=== PATIENT | male | born 1930 | race Caucasian/White ===

== ENCOUNTER 2018-03-14 02:51 | Inpatient (IN) ==
[2018-03-14 03:47] LABS: BASOPHILS # (AUTO) 0.01 10*3/UL; BASOPHILS % (AUTO) 0.1 % (0-1); EOSINOPHILS # (AUTO) 0.01 10*3/UL; EOSINOPHILS % (AUTO) 0.1 % (0-8); Hematocrit [HCT] 24.9 % (42.0-52.0); Hemoglobin [HGB] 7.8 g/dL (14.0-18.0); LYMPHOCYTES # (AUTO) 1.32 10*3/uL; MEAN CORPUSCULAR HEMOGLOBIN 29.3 PG (27-31); MEAN CORPUSCULAR HGB CONC 31.3 g/dL (33-37); MEAN CORPUSCULAR VOLUME 93.6 FL (80-90); MEAN PLATELET VOLUME 10.2 FL (7.4-12.2); MONOCYTES # (AUTO) 0.62 10*3/UL (0.3-0.8); MONOCYTES % (AUTO) 5.2 % (5-15); NEUTROPHILS # (AUTO) 9.94 10*3/UL; NEUTROPHILS % (AUTO) 83.2 % (50-80); RED BLOOD COUNT 2.66 10^6/uL (4.70-6.10)
[2018-03-14 03:59] LABS: BLOOD UREA NITROGEN 72 mg/dL (7-22); BUN/CREATININE RATIO 42.35 (6-20); SERUM ALBUMIN 3.6 g/dL (3.5-4.8)
[2018-03-14 04:14] LABS: PLATELET MORPHOLOGY COMMENT NORMAL MORPHOLOGY (NORM); RBC MORPHOLOGY COMMENT SEE COMMENTS (NORM); WBC MORPHOLOGY COMMENT NORMAL MORPHOLOGY (NORM)
[2018-03-14] MEDS ORDERED: LIDOCAINE W/ SODIUM BICARB 0.5 ML SYR SUBD PRN ×2 (04:43→05:21)
[2018-03-14] MEDS ORDERED: ONDANSETRON 4 MG/2 ML VIAL IVP PRN ×2 (04:43→05:21)
[2018-03-14] MEDS ORDERED: Lactated Ringers 1,000 ML PRIMARY IV SCH (04:45)
--- NOTE | 2018-03-14 05:39 | PDOC ---
HPI - History of Present Illness Date of Service: 03/14/18 Time of Service: 06:00 Chief Complaint: Hematemesis of one day duration, melena intermittent duration not clear. History of Present Illness: This is an 87 years old male with medical history significant for history of hypertension, Parkinson disease, history of bladder cancer in the past had BCG treatment for it and admission back in 2015 for CHF looks secondary to diastolic dysfunction, who presented to the hospital with history of melena duration is unclear but also reported hematemesis about 3 times yesterday. Patient had blood test in the ER found to have acute renal failure and the anemia and was admitted. Apparently back in October the patient was referred to Dr. Padron because of anemia and EGD done showed esophagitis with esophageal ulcer. Patient was put on Protonix and per the he developed a rash and apparently that was discontinued and replaced with famotidine. Patient is not taking Motrin or Aleve but he is on aspirin. Patient denied abdominal pain, denied current nausea and denied dizziness or lightheadedness or shortness of breath. Past Medical History Medical History: 1. Bladder cancer status post tumor removal with BCG therapy. 2. History of Parkinson disease. 3. Admission in 2015 for congestive heart failure, looks like secondary to diastolic dysfunction. 4. Hypertension. 5. History of esophagitis and esophageal ulcer had EGD in October of this year Surgical History: 1. Remote appendectomy Pertinent Family History: Both parents of cancer Past Social History: Quit smoking in the early . Been 55 years. No children. Lives with his in [place], [place]. He does not want any CPR should his heart stop. Tobacco Use: Former Smoker In the Past 12 Months, Have Used or Abuse Any of the Following Substance: None Alcohol Use: None Medication / Allergies Home Medications: Home Medications 3 Medication Instructions Recorded Confirmed Type Aspirin 325 mg PO DAILY #30 tab 03/22/16 03/14/18 Rx Carvedilol [Coreg] 3.125 mg PO BID #60 tab 03/22/16 03/14/18 Rx Furosemide [Lasix] 40 mg PO EVERY AM #30 tab 03/22/16 03/14/18 Rx Lisinopril [Prinivil Tab] 5 mg PO DAILY #30 tab 03/22/16 03/14/18 Rx Potassium Chloride [Klor-Con] 20 meq PO DAILY #30 tab 03/22/16 03/14/18 Rx Spironolactone [Aldactone] 25 mg PO BID #30 tab 03/22/16 03/14/18 Rx albuterol sulfate HFA 90 2 inh INH QHS PRN g 11/07/17 03/14/18 History mcg/actuation aerosol inhaler carbidopa 25 mg-levodopa 100 mg 1 tab PO BID tab 11/07/17 03/14/18 History disintegrating tablet Allergies/Adverse Reactions: Allergies 3 Allergy/AdvReac Type Severity Reaction Status Date / Time pantoprazole [From Protonix] Allergy HIVES Verified 03/14/18 02:54 Review of Systems - Review of Systems All Systems: Reviewed & No Additional Complaints Except as Stated Exam - Vitals Vital Signs: Vital Signs Temperature 97.9 F Temperature Source Temporal Artery Scan Pulse Rate [Pulse Oximeter] 100 Respiratory Rate 16 Blood Pressure [Left Radial 131/86 Artery] Pulse Ox 95 Oxygen Delivery Method Room Air Height 6 ft 1 in Weight 190 lb - General General Appearance: No Acute Distress, Cooperative - Head Head Exam: Normal Inspection - Eye Eye Exam: POSITIVE: Normal Appearance - ENT ENT Exam: POSITIVE: Normal Exam - Neck Neck Exam: Normal Inspection - Respiratory Respiratory Exam: POSITIVE: Clear to Auscultation - Bilaterally - Cardiovascular Cardiovascular Exam: POSITIVE: RRR - GI/Abdominal GI/Abdominal Exam: POSITIVE: Normal Bowel Sounds, Non Tender, Non Distended, Soft, No Organomegaly - Rectal Rectal Exam: POSITIVE: Deferred - External Exam: POSITIVE: Deferred - Extremities Extremities Exam: POSITIVE: Normal Inspection Additional Extremities Exam Details: Tremor noted in his hands - Back Back Exam: POSITIVE: Normal Inspection - Neurological Neurological Exam: POSITIVE: Alert, CN II-XII Intact, Speech Intact / Clear, Moves All Extremities Equally Additional Neurological Exam Details: Resting tremor noted - Integumentary Integumentary Exam: POSITIVE: Pallor Results - Labs CBC and BMP: 03/14/18 03:35 03/14/18 03:35 Assessment and Plan - Patient Problems (1) GI bleed Current Visit: Yes Status: Acute Comment: We'll DC the aspirin. He is allergic to Protonix. Will put him on Pepcid. We'll give him 2 units of blood. Repeat labs later on. We'll put him on IV fluid also. I will discuss it with Dr. Grosdidier today. Code(s): Jenny92.2 - Gastrointestinal hemorrhage, unspecified (2) Acute renal failure Current Visit: Yes Status: Acute Comment: Probably secondary to the bleeding in addition he is on Aldactone will hold the spironolactone. Code(s): N17.9 - Acute kidney failure, unspecified (3) Parkinson disease Current Visit: No Status: Acute Comment: He is on Sinemet continue Code(s): G20 - Parkinson's disease
[2018-03-14] MEDS: Lactated Ringers 1,000 ML PRIMARY IV SCH ×2 (05:49→19:02)
[2018-03-14] MEDS ORDERED: ALBUTEROL SULFATE 8.5 GM HFA INHALER INH PRN (05:55)
--- NOTE | 2018-03-14 07:01 | PDOC ---
GI Bleed/Rectal Complaint HPI - General Chief Complaint: GI Bleed / Rectal Pain Stated Complaint: BLOODY EMESIS X 4 YESTERDAY Date Seen by Provider: 03/14/18 Time Seen by Provider: 03:05 Source: POSITIVE: Patient, Spouse, RN/MD Exam Limitations: POSITIVE: No limitations Nurse's Notes Reviewed & Considered: Yes - History of Present Illness Initial Comments: The patient is an 87-year-old male. Patient complains of a 1 day history of "black stools "and he is also had 3 episodes of hematemesis. Patient was initially seen at the [facility] emergency room and then referred here. Patient had an esophagogastroduodenoscopy on 11/07/2017 in which she was diagnosed as having "ulcers "according to the patient's . At the [place] emergency room his hemoglobin was 24 and his hematocrit was 22.8. Patient denies any abdominal pain. No head or chest pain. No syncope. Patient has a history of Parkinson's disease with a prominent tremor to his right hand. Body Location Affected: REPORTS: Abdomen (Melena and hematemesis) Timing: REPORTS: Intermittent Duration: <24 hours Severity: Moderate Quality: REPORTS: Other (Patient denies any pain anywhere) Context: REPORTS: None Associated Symptoms: REPORTS: Black Stools, Vomiting (Patient reports hematemesis; this was not observed in the emergency room.) Last BM (Date): 03/13/18 Similar Symptoms Previously: Yes (past history of gastrointestinal bleeding) Recent Care Received: REPORTS: Recently Seen, Treated by MD Any Prior Injuries Related to Current Complaint?: No - Patient Home Medications Home Medications: Home Medications Aspirin 325 mg PO DAILY #30 tab 03/22/16 Carvedilol [Coreg] 3.125 mg PO BID #60 tab 03/22/16 Furosemide [Lasix] 40 mg PO EVERY AM #30 tab 03/22/16 Lisinopril [Prinivil Tab] 5 mg PO DAILY #30 tab 03/22/16 Potassium Chloride [Klor-Con] 20 meq PO DAILY #30 tab 03/22/16 Spironolactone [Aldactone] 25 mg PO BID #30 tab 03/22/16 albuterol sulfate HFA 90 mcg/actuation aerosol inhaler 2 inh INH QHS PRN g carbidopa 25 mg-levodopa 100 mg disintegrating tablet 1 tab PO BID tab - Patient Allergies Allergies/Adverse Reactions: Allergies 3 Allergy/AdvReac Type Severity Reaction Status Date / Time pantoprazole [From Protonix] Allergy HIVES Verified 03/14/18 02:54 Past Medical History - heen HEENT History: Cataracts, Hard of Hearing, Dentures/Partials Cardiovascular History: Hypertension, CHF Respiratory History: Pneumonia Gastrointestinal History: GERD, GI Bleed Genitourinary History: Renal Disease, Incontinence Endocrine History: Denies History Musculoskeletal History: Arthritis, Back Pain, Back Injury Prosthesis or Implant: No Neurological History: Parkinson's Blood Disorders: Anemia Psychiatric History: Denies History History of Sexually Transmitted Diseases: No Cancer History: Other (please comment) In Past Year Been Physically Harmed or Verbally Threatened: No History of MDRO: Unknown History of Other Communicable Diseases: No Tobacco Use: Former Smoker Alcohol Use: Rarely In the Past 12 Months, Have Used or Abuse Any Substance: None Previous Surgical History: Yes Type / Date of Surgery: appendectomy/bladder tumor removed/cataracts Anesthesia Reactions: No Malignant Hyperthermia: No Significant Family History: Heart disease, Cancer, Diabetes Past Medical History Reviewed: Reviewed - No Changes ROS - Limitations ROS Limitations: No Limitations Constitution: REPORTS: Denies Symptoms Cardiovascular: REPORTS: Denies Cardiac Symptoms Respiratory: REPORTS: Denies Resp Symptoms Neurological: REPORTS: Denies Neuro Symptoms Gastrointestinal: REPORTS: Vomitting, Black Stools, Other (Hematemesis by history) Endocrine: REPORTS: Denies Symptoms Musculoskeletal: REPORTS: Denies MS Symptoms Genitourinary: REPORTS: Denies Symptoms Eyes: REPORTS: Denies Symptoms ENT: REPORTS: Denies Symptoms Skin: REPORTS: Denies Skin Symptoms Lympathic: REPORTS: Denies Lympathic Symptoms Immunologic: POSITIVE: Denies Symptoms Psychiatric: POSITIVE: Denies Psych Symptoms GI Bleed / Rectal Complaint PE - General Appearance General Appearance: POSITIVE: Alert, Cooperative, No Acute Distress, No Evidence of Trauma, Other (Very pale) - HEENT HEENT: POSITIVE: Head Inspection Nml, Eyes Inspection Nml, Ears Inspection Nml, Nose Inspection Nml, Oral/Dental Inspect. Nml, Pharynx Inspect. Nml, PERRL, EOMI - Neck Neck: POSITIVE: Normal Inspection, No Apparent Injury - Respiratory Respiratory: POSITIVE: No Respiratory Distress, Breath Sounds Normal, Chest Non- Tender - Cardiovascular Cardiovascular: POSITIVE: Regular Rate and Rhythm, Heart Sounds Normal, Equal Pulses, Strong Pulses Peripheral Pulses: Radial (R): 2+, Radial (L): 2+ - Abdomen Abdomen: Soft: (All Quadrants), Normal Bowel Sounds: (All Quadrants), Denies Tenderness: (All Quadrants), No Splenomegaly: (All Quadrants), No Hepatomegaly: (All Quadrants), No Guarding: (All Quadrants), No Rebound: (All Quadrants), No Palpable Pulse: (All Quadrants), No Palpabale Mass: (All Quadrants), No Distention: (All Quadrants), No Rigidity: (All Quadrants) - Genital / Rectal Rectal: POSITIVE: Non-Tender, Black Stool (Hemoccult positive), Heme Positive Stool - Skin Skin: POSITIVE: No Rash, Warm, Cyanosis. NEGATIVE: Color Normal (Pale) - Extremities Extremity: Non-Tender: (All Extremities), Normal ROM: (All Extremities), Normal Inspection: (All Extremities) - Neurological / Psychological Neurological: POSITIVE: Affect Apporpriate, Oriented X3, tail end rider Normal As Tested, Motor Normal, Sensation Normal, Other (Resting tremor of hands, especially on the right; history of Parkinson's disease) GI Bleed / Rectal Progress - Results Reviewed by me Lab Results Reviewed by Me: Yes Lab Results:: Laboratory Results 3 03/14/18 03/14/18 03/14/18 03:35 03:35 03:35 WBC 11.93 H RBC 2.66 L Hgb 7.8 L Hct 24.9 L MCV 93.6 H MCH 29.3 MCHC 31.3 L RDW Std Deviation 50.2 H RDW Coeff of Gage 15.4 H Plt Count 221 MPV 10.2 Immature Gran % (Auto) 0.3 Neut % (Auto) 83.2 H Lymph % (Auto) 11.1 [place] % (Auto) 5.2 Eos % (Auto) 0.1 Baso % (Auto) 0.1 Immature Gran # (Auto) 0.03 Neut # (Auto) 9.94 Lymph # (Auto) 1.32 [place] # (Auto) 0.62 Eos # (Auto) 0.01 Baso # (Auto) 0.01 WBC Morphology Comment Normal morphology Plt Morphology Comment Normal morphology RBC Morph Comment See comments PT 10.7 INR 1.01 APTT 20.2 L Sodium 138 Potassium 4.3 Chloride 109 Carbon Dioxide 15 L Anion Gap 14 BUN 72 H Creatinine 1.7 H Estimated GFR Screen Operator BUN/Creatinine Ratio 42.35 H Glucose 115 H Calculated Osmolality 307.0 H Calcium 9.3 Total Bilirubin 0.2 L AST 18 L ALT 35 Alkaline Phosphatase 55 Total Protein 6.2 Albumin 3.6 Globulin 2.6 Albumin/Globulin Ratio 1.30 Blood Type Antibody Screen Crossmatch 3 03/14/18 03:38 WBC RBC Hgb Hct MCV MCH MCHC RDW Std Deviation RDW Coeff of Gage Plt Count MPV Immature Gran % (Auto) Neut % (Auto) Lymph % (Auto) [place] % (Auto) Eos % (Auto) Baso % (Auto) Immature Gran # (Auto) Neut # (Auto) Lymph # (Auto) [place] # (Auto) Eos # (Auto) Baso # (Auto) WBC Morphology Comment Plt Morphology Comment RBC Morph Comment PT INR APTT Sodium Potassium Chloride Carbon Dioxide Anion Gap BUN Creatinine Estimated GFR BUN/Creatinine Ratio Glucose Calculated Osmolality Calcium Total Bilirubin AST ALT Alkaline Phosphatase Total Protein Albumin Globulin Albumin/Globulin Ratio Blood Type A POSITIVE Antibody Screen Negative Crossmatch See Detail CBC and BMP: 03/14/18 03:35 03/14/18 03:35 - Patient's Progress Pain Medication Addressed: POSITIVE: Not Applicable School/Work Release Addressed: POSITIVE: Not Applicable Re-Examine Time:: 04:30 Re-Examine Comment: Patient rested comfortably while in the emergency room. No diarrhea or vomiting while in the emergency room. 2 units of packed red blood cells ordered typed and crossed. Case discussed with Dr. Xie, hospitalist, who has admitted the patient for further evaluation and treatment. Status: POSITIVE: Unchanged, Re-Examined - Consult Consult (If Yes, Name of Consulting MD & Time Called): Yes (Dr. Xie, hospitalist, [id number]) Consulting MD will see pt:: POSITIVE: [facility] Admit Counseled: POSITIVE: Patient, Family, RE: Lab Results, RE: DX, RE: Need for F/U Patient Care Time - Estimated PCT Patient Care Time (In Minutes): 45 Vital Signs - Recent Vital Signs Vital Signs: Vital Signs (Last 8 hours) Temp Pulse Resp BP Pulse Ox 03/14/18 05:00 98.0 F 89 20 107/76 97 03/14/18 04:49 86 03/14/18 03:09 97.9 F 100 16 131/86 95 - VS Reviewed Vital Signs Reviewed: Yes Discharge Clinical Impression: GI bleed Discharge Disposition: Admit to Inpatient Condition: Fair Date Decision to Admit to Inpatient: 03/14/18 Time Decision to Admit to Inpatient: 04:30
[2018-03-14] MEDS: Sodium Chloride 0.9% 500 ML PRIMARY IV SCH (07:34)
[2018-03-14] MEDS: FAMOTIDINE 20 MG/2 ML VIAL IVP SCH ×2 (08:58→20:39)
[2018-03-14] MEDS: Carbidopa/Levodopa 25/100mg Tab PO SCH ×2 (09:07→20:39)
[2018-03-14 18:06] LABS: Hemoglobin [HGB] 8.1 g/dL (14.0-18.0)
[2018-03-15] MEDS: Lactated Ringers 1,000 ML PRIMARY IV SCH ×4 (01:34→19:12)
[2018-03-15] MEDS: Sodium Chloride 0.9% 500 ML PRIMARY IV SCH (01:35)
[2018-03-15 04:47] LABS: BASOPHILS # (AUTO) 0.01 10*3/UL; BASOPHILS % (AUTO) 0.2 % (0-1); EOSINOPHILS # (AUTO) 0.19 10*3/UL; EOSINOPHILS % (AUTO) 3.6 % (0-8); Hematocrit [HCT] 24.4 % (42.0-52.0); Hemoglobin [HGB] 7.8 g/dL (14.0-18.0); LYMPHOCYTES # (AUTO) 1.07 10*3/uL; MEAN CORPUSCULAR VOLUME 90.7 FL (80-90); MEAN PLATELET VOLUME 9.8 FL (7.4-12.2); MONOCYTES # (AUTO) 0.46 10*3/UL (0.3-0.8); MONOCYTES % (AUTO) 8.8 % (5-15); NEUTROPHILS # (AUTO) 3.48 10*3/UL; NEUTROPHILS % (AUTO) 66.9 % (50-80); RED BLOOD COUNT 2.69 10^6/uL (4.70-6.10)
[2018-03-15 04:54] LABS: BLOOD UREA NITROGEN 47 mg/dL (7-22); BUN/CREATININE RATIO 39.16 (6-20)
[2018-03-15 05:54] LABS: PLATELET MORPHOLOGY COMMENT NORMAL MORPHOLOGY (NORM); RBC MORPHOLOGY COMMENT NORMAL MORPHOLOGY (NORM); WBC MORPHOLOGY COMMENT NORMAL MORPHOLOGY (NORM)
[2018-03-15] MEDS ORDERED: Sodium Chloride 0.9% 500 ML PRIMARY IV ONE (07:49)
--- NOTE | 2018-03-15 07:58 | PDOC(PROG) ---
Date and Time of Service: 03/15/2018 7:55 AM Interval History: Subjective Patient is denying symptoms is no more vomiting. He said he had 3 bowel movements was melenic per The nursing staff. No fresh blood. Objective : Data - Labs CBC and BMP: 03/15/18 04:20 03/15/18 04:20 Objective : Exam - General General Appearance: No Acute Distress, Cooperative - Head Head Exam: Normal Inspection - Eye Eye Exam: Normal Appearance - ENT ENT Exam: Normal Exam - Neck Neck Exam: Normal Inspection - Respiratory Respiratory Exam: Clear to Auscultation - Bilaterally - Cardiovascular Cardiovascular Exam: RRR - GI/Abdominal GI/Abdominal Exam: Normal Bowel Sounds, Non Tender, Non Distended, Soft, No Organomegaly - Rectal Rectal Exam: Deferred - External Exam: Deferred Exam: Deferred - Extremities Extremities Exam: Normal Inspection - Back Back Exam: Normal Inspection - Neurological Neurological Exam: Alert, Oriented x 3, CN II-XII Intact, No Facial Droop, Speech Intact / Clear, Moves All Extremities Equally - Psychiatric Psychiatric Exam: Flat Affect Assessment and Plan - Patient Problems (1) GI bleed Current Visit: Yes Status: Acute Comment: His hemoglobin is still at the same number that he started with. I think we'll cut back on the fluid will give her a unit of blood repeat his level again. Will discuss it with Dr. Padron. Per my discussion with him yesterday he want to see whether his hemoglobin would stabilize and he would not need EGD now. Code(s): K92.2 - Gastrointestinal hemorrhage, unspecified (2) Acute renal failure Current Visit: Yes Status: Acute Comment: This is improving. I think we'll cut back on his fluid because of his history of congestive heart failure before Code(s): N17.9 - Acute kidney failure, unspecified (3) Parkinson disease Current Visit: No Status: Acute Comment: Continue Sinemet Code(s): G20 - Parkinson's disease
--- NOTE | 2018-03-15 09:22 | CONSULT ---
Consult Note - Consult Consult Date: 03/15/18 Reason for Consult: PreOp Consulation : General Surgery Requesting Physician: Dr. Xie Primary Care Provider: ROMEO CHISHOLM - History of Present Illness History of Present Illness: There is a 7-year-old gentleman has a known esophageal ulcers and gastritis. He comes in with hematemesis and black tarry stools. This started on 2017. Patient came initial hemoglobin of 7.8. He is admitted to the hospital started on Pepcid (had an allergic reaction to her Protonix) and was transfused 2 units of blood initially his hemoglobin came 8.1 and subsequent this morning' s hemoglobin 7.8. He still having black tarry stools. Review of Systems - Review of Systems All Systems: Reviewed & No Additional Complaints Except as Stated Past Medical History Medical History: 1. Bladder cancer status post tumor removal with BCG therapy. 2. History of Parkinson disease. 3. Admission in 2015 for congestive heart failure, looks like secondary to diastolic dysfunction. 4. Hypertension. 5. History of esophagitis and esophageal ulcer had EGD in October of this year Surgical History: 1. Remote appendectomy Pertinent Family History: Both parents of cancer Past Social History: Quit smoking in the early . Been 55 years. No children. Lives with his in [place], [place]. He does not want any CPR should his heart stop. Tobacco Use: Former Smoker In the Past 12 Months, Have Used or Abuse Any of the Following Substance: None Alcohol Use: None Medication / Allergies Home Medications: Home Medications 3 Medication Instructions Recorded Confirmed Type Aspirin 325 mg PO DAILY #30 tab 03/22/16 03/14/18 Rx Carvedilol [Coreg] 3.125 mg PO BID #60 tab 03/22/16 03/14/18 Rx Furosemide [Lasix] 40 mg PO EVERY AM #30 tab 03/22/16 03/14/18 Rx Lisinopril [Prinivil Tab] 5 mg PO DAILY #30 tab 03/22/16 03/14/18 Rx Potassium Chloride [Klor-Con] 20 meq PO DAILY #30 tab 03/22/16 03/14/18 Rx Spironolactone [Aldactone] 25 mg PO BID #30 tab 03/22/16 03/14/18 Rx albuterol sulfate HFA 90 2 inh INH QHS PRN g 11/07/17 03/14/18 History mcg/actuation aerosol inhaler carbidopa 25 mg-levodopa 100 mg 1 tab PO BID tab 11/07/17 03/14/18 History disintegrating tablet Allergies/Adverse Reactions: Allergies 3 Allergy/AdvReac Type Severity Reaction Status Date / Time pantoprazole [From Protonix] Allergy HIVES Verified 03/14/18 02:54 Results - Labs CBC and BMP: 03/15/18 04:20 03/15/18 04:20 Exam - Vitals Vital Signs: Vital Signs Temperature 97.8 F Temperature Source Oral Pulse Rate [Pulse Oximeter] 70 Pulse Rate 68 Respiratory Rate 18 Blood Pressure [Right Arm] 105/73 Blood Pressure [Left Radial 109/67 Artery] Blood Pressure 112/64 Pulse Ox 93 Oxygen Delivery Method Room Air Height 6 ft 1 in Weight 186 lb - General General Appearance: No Acute Distress - Head Head Exam: Normocephalic - Eye Eye Exam: POSITIVE: PERRL, EOMI - Respiratory Respiratory Exam: POSITIVE: Clear to Auscultation - Bilaterally, Breathing Non Labored - Cardiovascular Cardiovascular Exam: POSITIVE: RRR, No Murmur Assessment and Plan - Patient Problems (1) Upper GI hemorrhage Current Visit: Yes Status: Acute Code(s): K92.2 - Gastrointestinal hemorrhage, unspecified - Assessment / Plan Additional Assessment/Plan Details: Would recommend the patient have an EGD. The risk and potential complications of the procedure were discussed with the patient.. They understood this. Also discussed alternatives diagnostic and treatment options. Will get the EGD set up at the first available date. CPT 73492
[2018-03-15] MEDS ORDERED: PROPOFOL 10 MG/1 ML (200 MG/20 ML) VIAL IV ONE (09:31)
--- NOTE | 2018-03-15 10:26 | GEN.OPNOTE ---
EGD Operative Note Surgery Date: 03/15/18 Preoperative Diagnosis: Upper GI bleed Postoperative Diagnosis: Upper GI hemorrhage secondary to a small bleeding vessel in the fundus possible mass effect eroded into the stomach. Esophagitis Procedure: Esophagogastroduodenoscopy with cauterization of bleeding point Surgeon: Bunny Padron MD Anesthesia Provider: Ida Coe CRNA Anesthesia Type: MAC Indications: Upper GI hemorrhage Findings: Esophagus: Olympus video EGD scope inserted and posterior pharynx And Esophagus under Direct Visualization. Patient Esophagus Appeared Normal except Just above the GE Junction Where Had a Red Area Consistent with Mandujano's Esophagitis GE Junction : GE junction proximal be 40 cm Fundus : Scope retroflexed on itself revealing normal fundus Body : In the upper portion the body there is a small punctate hemorrhagic area that appeared to be a small vessel bleeding. Initially tried to cauterize this with BiCAP which could not control the bleeding then I used monopolar cautery which controlled the bleeding. There was what appeared to be a masslike effect pushing up on the stomach but the mucosa itself was normal Prepyloric : Prepyloric area normal Small Intestine : First second third portion of duodenum normal A lubricated flexible upper endoscope was inserted and passed through the esophagus and stomach into the duodenum. Endoscopy Procedures - Endoscopy Procedures Primary Endoscopy Procedure: Other CPT Code(s) (71733 EGD with controlled bleeding any method)
--- NOTE | 2018-03-15 10:48 | CRNA.PROGR ---
Anesthesia Time - - Start date: 03/15/18 End date: 03/15/18 - Procedure/Recovery Time Anesthesia : Time In: 09:49 Anesthesia : Time Out: 10:43 Anesthesia : Total Time: 54 - Total Anesthesia Time Total Anesthesia Time (minutes): 54 - Other Weight: 84.368 kg Height: 6 ft 1 in Body Mass Index (BMI): 24.5 Physical Status: P3 (gi bleed, parkinsons,copd,age) Anesthesia Type: MAC (plus 2 addditional iv starts)
--- NOTE | 2018-03-15 10:51 | CRNA.PROGR ---
Post Anesthesia Phase II - Post Anesthesia Phase II Patient Stable and Discharged To: ICU Care Assumed By Surgeon: Jeff Padron MD Temperature: 97.8 F Pulse Rate: 72 Respiratory Rate: 18 Blood Pressure: 103/71 Pulse Ox: 100 Total Jez Score at Discharge: 9 Post Anesthesia Discharge Criteria Met: Yes
[2018-03-15] MEDS ORDERED: Sodium Chloride 0.9% 500 ML ONE (11:07)
[2018-03-15] MEDS: FAMOTIDINE 20 MG/2 ML VIAL IVP SCH ×2 (11:17→20:44)
[2018-03-15] MEDS: Carbidopa/Levodopa 25/100mg Tab PO SCH ×2 (11:18→20:44)
[2018-03-15] MEDS ORDERED: Sodium Chloride 0.9% 500 ML PRIMARY IV SCH (11:30)
[2018-03-15] MEDS: Potassium Chloride Tab 10 MEQ TAB PO SCH (16:26)
[2018-03-15 18:33] LABS: Hematocrit [HCT] 30.6 % (42.0-52.0); Hemoglobin [HGB] 9.8 g/dL (14.0-18.0)
[2018-03-16 05:30] LABS: BASOPHILS # (AUTO) 0.01 10*3/UL; BASOPHILS % (AUTO) 0.2 % (0-1); EOSINOPHILS # (AUTO) 0.18 10*3/UL; EOSINOPHILS % (AUTO) 3.3 % (0-8); Hematocrit [HCT] 26.7 % (42.0-52.0); Hemoglobin [HGB] 8.3 g/dL (14.0-18.0); MEAN CORPUSCULAR HEMOGLOBIN 28.8 PG (27-31); MEAN CORPUSCULAR HGB CONC 31.1 g/dL (33-37); MEAN CORPUSCULAR VOLUME 92.7 FL (80-90); MEAN PLATELET VOLUME 9.9 FL (7.4-12.2); MONOCYTES # (AUTO) 0.44 10*3/UL (0.3-0.8); MONOCYTES % (AUTO) 8.1 % (5-15); NEUTROPHILS # (AUTO) 3.73 10*3/UL; NEUTROPHILS % (AUTO) 68.3 % (50-80); RED BLOOD COUNT 2.88 10^6/uL (4.70-6.10)
[2018-03-16 05:39] LABS: PLATELET MORPHOLOGY COMMENT NORMAL MORPHOLOGY (NORM); RBC MORPHOLOGY COMMENT NORMAL MORPHOLOGY (NORM); WBC MORPHOLOGY COMMENT NORMAL MORPHOLOGY (NORM)
[2018-03-16 05:44] LABS: BLOOD UREA NITROGEN 31 mg/dL (7-22); BUN/CREATININE RATIO 28.18 (6-20)
[2018-03-16] MEDS: Carbidopa/Levodopa 25/100mg Tab PO SCH ×2 (08:54→20:24)
[2018-03-16] MEDS: Potassium Chloride Tab 10 MEQ TAB PO SCH (08:54)
[2018-03-16] MEDS: FAMOTIDINE 20 MG/2 ML VIAL IVP SCH ×2 (08:55→20:23)
--- NOTE | 2018-03-16 10:15 | PDOC(PROG) ---
Subjective Post Op Day: 1 Krause Catheter: No Flatus: Yes Date and Time of Service: 03/16/2018 at 10:15 Interval History: Patient states he's feeling fine. There is reports of no further nausea vomiting. He says dark stool but the number of stools is greatly diminished Objective : Data - Labs CBC and BMP: 03/16/18 04:15 03/16/18 04:15 - Vital Signs Vital Signs and I&O: Vital Signs - Last Taken Temperature 98.7 F 03/16/18 09:00 Pulse Rate 81 03/16/18 09:00 Respiratory Rate 18 03/16/18 09:00 Blood Pressure 109/64 03/16/18 09:00 Pulse Ox 95 03/16/18 09:00 Intake and Output (24hr x 4 totals) 03/14/18 03/15/18 03/16/18 03/17/18 05:59 05:59 05:59 05:59 Intake Total 2911 / 2911 2216 / 2216 450 / 450 Output Total 1785 / 1785 400 / 400 150 / 150 Balance 1126 / 1126 1816 / 1816 300 / 300 Objective : Exam - GI/Abdominal GI/Abdominal Exam: Non Tender, Non Distended, Soft Assessment and Plan - Patient Problems (1) Upper GI hemorrhage Current Visit: Yes Status: Acute Code(s): K92.2 - Gastrointestinal hemorrhage, unspecified - Assessment / Plan Additional Assessment/Plan Details: His hemoglobin drifted down a little bit that again there is no other evidence is still bleeding. Will need to watch this will get a CT scan of the abdomen and pelvis today look for a mass that could be eroding into the stomach. Also could start Carafate after the CT scan.
[2018-03-16] MEDS ORDERED: ONDANSETRON 4 MG/2 ML VIAL IVP PRN (12:10)
[2018-03-16] MEDS ORDERED: ALBUTEROL SULFATE 8.5 GM HFA INHALER INH PRN (12:10)
[2018-03-16] MEDS ORDERED: LIDOCAINE W/ SODIUM BICARB 0.5 ML SYR SUBD PRN (12:10)
--- NOTE | 2018-03-16 12:21 | DI ---
CT ABDOMEN SCAN WITH IV CONTRAST, 03/16/2018 10:30 AM : Clinical History: Ulcer. Previous Exam: None at this facility. Comparison is made with a CT chest scan without IV contrast fro 03/17/2016. Scans are performed from the lower lung bases through the liver and kidneys with IV contrast. 65 mL o f Isovue 300 was injected IV. Volumen oral enterography contrast was administered. Small bilateral pleural effusions are present. Calcifications are present in the LAD, left circumflex artery, and right coronary artery. Calcifications are also noted in the area of the aortic valve. In the anterior chest wall between the medial and lateral segments of the right middle lobe is an irreg ularly shaped noncalcified nodular density measuring 20 x 10 x 20 mm. This was not present on the CT scan of the chest from 2015. Multiple low-density lesions approaching water density are present in th e right and left lobes the liver ranging in size from 3 mm up to 15 mm and these were present on the last exam and are consistent with cysts. The gallbladder mucosa enhances and the gallbladder wall is of low density consistent with edema. No gallstones are visualized. This may represent acute cholecys titis. The common duct measures 5 mm. The gastric mucosa including the antrum is normal and the secon d and third parts of the duodenum are also normal. The pancreas is atrophic and there are punctate ca lcifications in the head of the pancreas but not in the remainder of the pancreas. The pancreatic ziggy t is not dilated. These calcifications may represent chronic pancreatitis, but they also could be sma ll calcifications in the vessels surrounding the pancreatic head. Both kidneys are normal in size, sh ape, position and contour. There is no hydronephrosis or hydroureter. No renal or ureteral calculi ar e present. There are no abnormal retrocrural or periaortic nodes. No ascites is present. READIN. There is enhancement of the gallbladder mucosa and the wall is of low density suggesting edema. T his may represent acute cholecystitis. No obvious gallstone is visualized. The common duct measures 5 mm. 2. There is no obvious enhancing mucosal lesion in the stomach or in the second part of the duodenum to suggest a large ulcer. Calcifications are present in the head of the pancreas and these are eithe r vascular or secondary to chronic pancreatitis. The pancreatic duct is not dilated. 3. 10 x 20 x 20 mm noncalcified nodular lesion in the right middle lobe anteriorly. This was not pre sent on the previous exam of the chest from 2016. 4. Small bilateral pleural effusions. Coronary artery disease in the LAD, left circumflex artery, an d right coronary artery with possible calcific aortic valvular disease. CT PELVIS SCAN WITH IV CONTRAST, 03/16/2018 10:30 AM: Clinical History: See above. Previous Exam: None at this facility. Scans are performed from just superior to the umbilicus to the symphysis pubis with IV contrast. This is the same bolus of contrast used for the CT scans of the abdomen. Scans through the lower abdomen and pelvis show no masses, enhancing lesions, or abnormal fluid colle ctions. There is no adenopathy. The appendix is not identified with certainty but there is no inflamm atory mass either in the cecum or in the right lower quadrant. The small bowel, terminal ileum, and i leocecal valve are normal. The colon is also normal. There are no hernias. 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 The aneurysm measu res 43 x 45 mm in AP and transverse diameter. READIN. 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 2. The study is otherwise normal.
--- NOTE | 2018-03-16 12:47 | PDOC(PROG) ---
Date and Time of Service: 03/16/2018, 1240 Interval History: Patient seen and evaluated earlier today. Discussed with Dr. Padron. No complaints of abdominal pain. No nausea and no vomiting. Has not had a bowel movement. Tolerating regular diet thus far . Does not feel weak. Objective : Data - Labs CBC and BMP: 03/16/18 04:15 03/16/18 04:15 Objective : Exam - General General Appearance: No Acute Distress, Cooperative Additional General Exam Details: Vital Signs - Last Taken Temperature 98.7 F 03/16/18 09:00 Pulse Rate 69 03/16/18 11:00 Respiratory Rate 16 03/16/18 10:00 Blood Pressure 118/80 03/16/18 11:00 Pulse Ox 97 03/16/18 11:00 - Eye Eye Exam: No Scleral Icterus - ENT ENT Exam: Mucous Membranes Moist - Respiratory Respiratory Exam: Clear to Auscultation - Bilaterally, Breathing Non Labored - Cardiovascular Cardiovascular Exam: RRR, No Murmur, No Clicks, No Gallops, No Rubs, No JVD - GI/Abdominal GI/Abdominal Exam: Normal Bowel Sounds, Non Tender, Non Distended, Soft - Extremities Extremities Exam: No Clubbing Present, No Edema Present, No Cyanosis Present - Neurological Neurological Exam: Alert, Oriented x 3, No Facial Droop, Speech Intact / Clear, Moves All Extremities Equally - Integumentary Additional Integumentary Exam Details: Appears pale on exam. Assessment and Plan - Patient Problems (1) GI bleed Current Visit: Yes Status: Acute Code(s): K92.2 - Gastrointestinal hemorrhage, unspecified Qualifiers: GI bleed type/associated pathology: gastric ulcer Qualified Code(s): K25.4 - Chronic or unspecified gastric ulcer with hemorrhage (2) Acute blood loss anemia Current Visit: Yes Status: Acute Code(s): D62 - Acute posthemorrhagic anemia (3) Parkinson disease Current Visit: Yes Status: Chronic Code(s): G20 - Parkinson's disease (4) Acute renal failure Current Visit: Yes Status: Resolved Code(s): N17.9 - Acute kidney failure, unspecified Qualifiers: Acute renal failure type: unspecified Qualified Code(s): N17.9 - Acute kidney failure, unspecified - Assessment / Plan Additional Assessment/Plan Details: I think we should continue to hold off the aspirin. The patient and his state that he is on it because of a diagnosis of congestive heart failure couple of years ago. No proven coronary artery disease. We'll discuss with his primary doctor tomorrow if possible. Transfer out of ICU. We did do CT scan today, I reviewed this with surgery. No evidence of abdominal mass. Radiology and noted. Patient does have peripheral arterial disease. That may be an argument to continue aspirin, although if we do, he should remain on some sort of acid jacob throughout his life. He cannot tolerate proton pump inhibitors due to rash on Protonix, but perhaps a combination of Carafate and H2 blockers will be the best we can do. Hold off on blood transfusion with hemoglobin noted today at over 8. Check again in a.m. Discussed with patient and his and they agree with plan.
[2018-03-16] MEDS: Sucralfate Tab 1 GM TAB PO SCH ×2 (15:55→20:24)
[2018-03-16] MEDS ORDERED: Potassium Chloride Tab 10 MEQ TAB PO SCH (17:00)
[2018-03-16] MEDS: CARVEDILOL 3.125 MG TABLET PO SCH (20:23)
[2018-03-17 05:05] LABS: Hematocrit [HCT] 26.5 % (42.0-52.0); Hemoglobin [HGB] 8.3 g/dL (14.0-18.0); MEAN CORPUSCULAR HGB CONC 31.3 g/dL (33-37); MEAN CORPUSCULAR VOLUME 92.7 FL (80-90); RED BLOOD COUNT 2.86 10^6/uL (4.70-6.10)
[2018-03-17] MEDS ORDERED: FUROSEMIDE 40 MG TABLET PO SCH (07:00)
[2018-03-17] MEDS: Sucralfate Tab 1 GM TAB PO SCH ×2 (07:06→11:29)
[2018-03-17] MEDS ORDERED: POTASSIUM CHLORIDE 20 MEQ TAB PO SCH (09:00)
[2018-03-17] MEDS ORDERED: LISINOPRIL 5 MG TABLET PO SCH (09:00)
[2018-03-17] MEDS: CARVEDILOL 3.125 MG TABLET PO SCH (09:02)
[2018-03-17] MEDS: FAMOTIDINE 20 MG/2 ML VIAL IVP SCH (09:02)
[2018-03-17] MEDS: Carbidopa/Levodopa 25/100mg Tab PO SCH (09:03)
[2018-03-17 11:10] VITALS: BP 101/64; RESP 17; TEMP 98.1; O2SAT 94
--- NOTE | 2018-03-17 13:50 | DCSUMMARY ---
Hospitalization Summary Admit Date: 03/14/2018 Discharge Date: 03/17/18 Primary Diagnosis:: GI bleed related to gastric blood vessel Hospital Course: This very pleasant 87-year-old male that came in with vomiting of bright red blood. He had dark stools for some time. He was admitted, EGD was done and he was found to have a bleeding vessel in the gastric area that was cauterized by Dr. Padron. See his procedure note for further details. The patient had an allergy to proton pump inhibitors, so he was maintained on Pepcid and Carafate during the hospital stay and his diet was advanced. He received a total of 3 units of red blood cells during her hospital stay. His discharge hemoglobin is 8.3 which is been consistently in that range for the last 48 hours. There was some concern that there could be a mass based on the EGD, so we did do a CT scan of the abdomen and pelvis. There was no abdominal mass, but the gallbladder wall was thickened. The patient had no symptoms to suggest acute cholecystitis. 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 I spoke with vascular surgery in [place] and they suggested that appointment should be arranged for consideration of endovascular repair. I spoke with the patient's primary physician Dr. Dubose, and she is aware of the situation as well. Given a proton pump inhibitor allergy, we will try to prevent any further erosion in the stomach with Pepcid and with Carafate. I recommended that the patient resume his aspirin in about 1 week due to recognized artery aneurysm and peripheral arterial disease. Today, the patient denies any abdominal pain, no nausea or vomiting, no belly pain, no chest pain and no shortness breath. He would like to go home. Assessment and Plan: 1. As per discharge assessments noted 2. Disposition: Patient is discharged home. 3. Condition on discharge, stable and improved. 4. Diet: regular diet 5. Activities: resume normal activities 6. Follow-Up: 1. Dr. Dubose [address] Khan, 1-2 weeks 7. Medications at the Time of Discharge: Home Medications 3 Medication Instructions Recorded Confirmed Type Carvedilol [Coreg] 3.125 mg PO BID #60 tab 03/22/16 03/14/18 Rx Furosemide [Lasix] 40 mg PO EVERY AM #30 tab 03/22/16 03/14/18 Rx Lisinopril [Prinivil Tab] 5 mg PO DAILY #30 tab 03/22/16 03/14/18 Rx Potassium Chloride [Klor-Con] 20 meq PO DAILY #30 tab 03/22/16 03/14/18 Rx Spironolactone [Aldactone] 25 mg PO BID #30 tab 03/22/16 03/14/18 Rx albuterol sulfate HFA 90 2 inh INH QHS PRN g 11/07/17 03/14/18 History mcg/actuation aerosol inhaler carbidopa 25 mg-levodopa 100 mg 1 tab PO BID tab 11/07/17 03/14/18 History disintegrating tablet Aspirin EC 81 mg PO DAILY #30 tablet. 03/17/18 Rx Famotidine [Pepcid] 20 mg PO BID #60 tab 03/17/18 Rx Sucralfate [Carafate] 1 gm PO AC HS #120 tab 03/17/18 Rx 8. Time, care, counseling and coordination of care for this discharge is greater than 30 minutes. Exam - Vitals Vital Signs: Vital Signs Temperature 98.1 F Temperature Source Temporal Artery Scan Pulse Rate [Pulse Oximeter] 63 Pulse Rate 67 Respiratory Rate 17 Blood Pressure [Left Arm] 101/64 Blood Pressure [Right Arm] 123/85 Blood Pressure [Left Radial 109/67 Artery] Blood Pressure 90/67 Pulse Ox 94 Oxygen Flow Rate 1 Oxygen Delivery Method Room Air Height 6 ft 1 in Weight 188 lb 9.6 oz - General General Appearance: No Acute Distress, Cooperative - Eye Eye Exam: POSITIVE: No Scleral Icterus - ENT ENT Exam: POSITIVE: Mucous Membranes Moist - Respiratory Respiratory Exam: POSITIVE: Clear to Auscultation - Bilaterally, Breathing Non Labored - Cardiovascular Cardiovascular Exam: POSITIVE: RRR, No Murmur, No Clicks, No Gallops, No Rubs, No JVD - GI/Abdominal GI/Abdominal Exam: POSITIVE: Normal Bowel Sounds, Non Tender, Non Distended, Soft - Extremities Extremities Exam: POSITIVE: No Clubbing Present, No Edema Present, No Cyanosis Present - Neurological Neurological Exam: POSITIVE: Alert, Oriented x 3, No Facial Droop, Speech Intact / Clear, Moves All Extremities Equally Additional Neurological Exam Details: Somewhat flat affect on examination consistent with Parkinson's disease. - Psychiatric Psychiatric Exam: POSITIVE: Flat Affect (Again consistent with Parkinson's) Data Peritnent Studies: 03/16/18 03/17/18 04:15 04:18 WBC 6.33 Hgb 8.3 L Hct 26.5 L Plt Count 180 Sodium 139 Potassium 4.0 Chloride 112 Carbon Dioxide 21 L Anion Gap 6 BUN 31 H Creatinine 1.1 BUN/Creatinine Ratio 28.18 H Glucose 94 Calculated Osmolality 294.0 H Calcium 8.3 L 03/14/18 03:35 PT 10.7 INR 1.01 APTT 20.2 L Patient Problems - Patient Problem List (1) GI bleed Current Visit: Yes Status: Acute Code(s): K92.2 - Gastrointestinal hemorrhage, unspecified Qualifiers: GI bleed type/associated pathology: gastric ulcer Qualified Code(s): K25.4 - Chronic or unspecified gastric ulcer with hemorrhage Category: Medical (2) Acute blood loss anemia Current Visit: Yes Status: Acute Code(s): D62 - Acute posthemorrhagic anemia Category: Medical (3) Parkinson disease Current Visit: Yes Status: Chronic Code(s): G20 - Parkinson's disease Category: Medical (4) Acute renal failure Current Visit: Yes Status: Resolved Code(s): N17.9 - Acute kidney failure, unspecified Qualifiers: Acute renal failure type: unspecified Qualified Code(s): N17.9 - Acute kidney failure, unspecified Category: Medical
== END 2018-03-17 14:22 | disposition home or self-care (01) | DRG 378 ==
LOC: ER 02:51 → ICU 04:44 → OPS 03-15 09:45 → ICU 03-15 10:47 → MED/SURG 03-16 13:24
PROVIDERS: ADMIT Internal Medicine; ATTEND Internal Medicine

== ENCOUNTER 2018-05-29 03:35 | Inpatient (IN) ==
[2018-05-29] MEDS ORDERED: ONDANSETRON 4 MG/2 ML VIAL IVP PRN (05:00)
[2018-05-29] MEDS ORDERED: HYDROmorphone 2 MG/1 ML IVP PRN (05:00)
[2018-05-29] MEDS ORDERED: LIDOCAINE HCL 2 % 10 ML JELLY URO-JECT TOPICAL PRN (05:09)
[2018-05-29] MEDS ORDERED: Carbidopa/Levodopa 25/100mg Tab PO SCH (09:00)
[2018-05-29] MEDS: CARVEDILOL 3.125 MG TABLET PO SCH ×2 (10:08→21:11)
[2018-05-29] MEDS: HYDROcodone-APAP 5 MG -325 MG TABLET PO PRN ×4 (10:23→23:58)
[2018-05-29] MEDS ORDERED: ENOXAPARIN SODIUM 40 MG/0.4 ML SYRINGE SUBCUT ONE (12:36)
[2018-05-29] MEDS ORDERED: Lactated Ringers 0 ML PRIMARY IV ONE (12:42)
--- NOTE | 2018-05-29 12:42 | PDOC ---
HPI - History of Present Illness Date of Service: 05/29/18 Time of Service: 12:37 Chief Complaint: Fall and left hip pain History of Present Illness: This is a very pleasant 87-year-old male who is known to the hospital service with a recent history of a GI bleed, he also has Parkinson's disease and early dementia with that. He comes in with complaints of having a fall at around 1 AM in the bathroom. The history was obtained primarily from the patient's due to the patient's underlying dementia and Parkinson's disease. He apparently got up at around 1 AM to use the restroom. He uses a walker at home but the bathroom is too small for a walker and he supposed to use some canes but forgot to do that. He had a fall and he complained that he hurt too much to be able to get up. The patient's called an ambulance and they live in [place], and they were taken to [place], [place], and he was found to have a left hip fracture. He was transferred here for definitive orthopedic care. He does not have any complaints of chest pain, shortness of breath and has not had any anginal chest pain problems. Not have any kidney problems. He's not had a history of a stroke. He does have known diastolic dysfunction, but has not had any issues with symptoms from that lately. His pain is been controlled thus far with by mouth medications. He is in [facility]'s traction currently. The patient 's tells me that the patient has been freezing frequently with ambulation. He has been on Sinemet twice daily for quite some time. However he continues to have freezing symptoms. He does have rigidity, and flat facies from his Parkinson's. He has not been constipated. I spoke with Dr. Dowd, our orthopedic surgeon on-call, and he is to take the patient tomorrow for hip repair at 1 PM Past Medical History Medical History: 1. Bladder cancer status post tumor removal with BCG therapy. 2. History of Parkinson disease. 3. Admission in 2016 for congestive heart failure, looks like secondary to diastolic dysfunction. 4. Hypertension. 5. History of esophagitis and esophageal ulcer status post EGD, on H2 jacob Surgical History: 1. Remote appendectomy Pertinent Family History: Both parents of cancer Past Social History: Quit smoking in the early . Been 55 years. No children. Lives with his in [place], [place]. He does not want any CPR should his heart stop. Tobacco Use: Never Smoker In the Past 12 Months, Have Used or Abuse Any of the Following Substance: None Alcohol Use: None Medication / Allergies Home Medications: Home Medications 3 Medication Instructions Recorded Confirmed Type Carvedilol [Coreg] 3.125 mg PO BID #60 tab 03/22/16 03/14/18 Rx Furosemide [Lasix] 40 mg PO EVERY AM #30 tab 03/22/16 03/14/18 Rx Lisinopril [Prinivil Tab] 5 mg PO DAILY #30 tab 03/22/16 03/14/18 Rx Potassium Chloride [Klor-Con] 20 meq PO DAILY #30 tab 03/22/16 03/14/18 Rx Spironolactone [Aldactone] 25 mg PO BID #30 tab 03/22/16 03/14/18 Rx albuterol sulfate HFA 90 2 inh INH QHS PRN g 11/07/17 03/14/18 History mcg/actuation aerosol inhaler carbidopa 25 mg-levodopa 100 mg 1 tab PO BID tab 11/07/17 03/14/18 History disintegrating tablet Aspirin EC 81 mg PO DAILY #30 tablet. 03/17/18 Rx Famotidine [Pepcid] 20 mg PO BID #60 tab 03/17/18 Rx Sucralfate [Carafate] 1 gm PO AC HS #120 tab 03/17/18 Rx Allergies/Adverse Reactions: Allergies 3 Allergy/AdvReac Type Severity Reaction Status Date / Time pantoprazole [From Protonix] Allergy HIVES Verified 03/17/18 06:40 Review of Systems - Review of Systems All Systems: Reviewed & No Additional Complaints Except as Stated (Review systems was primarily obtained from the patient's , due to the patient's dementia and Parkinson's disease. The 12 point review systems is negative other than that discussed in history of present illness above.) Exam - Vitals Vital Signs: Vital Signs Temperature 98 F Temperature Source Temporal Artery Scan Pulse Rate [Radial] 81 Pulse Rate 77 Respiratory Rate 17 Blood Pressure 133/84 Pulse Ox 91 Oxygen Delivery Method Room Air Height 6 ft 3 in Weight 195 lb - General General Appearance: No Acute Distress, Cooperative - Head Head Exam: Normal Inspection, Normocephalic, Atraumatic - Eye Eye Exam: POSITIVE: No Scleral Icterus - ENT ENT Exam: POSITIVE: Mucous Membranes Moist - Neck Neck Exam: Normal Inspection, No Tenderness, No Lymphadenopathy, No Thyromegaly , JVP is not Raised - Respiratory Respiratory Exam: POSITIVE: Clear to Auscultation - Bilaterally, Breathing Non Labored - Cardiovascular Cardiovascular Exam: POSITIVE: RRR, No Murmur, No Clicks, No Gallops, No Rubs, No JVD - GI/Abdominal GI/Abdominal Exam: POSITIVE: Normal Bowel Sounds, Non Tender, Non Distended, Soft - Rectal Rectal Exam: POSITIVE: Deferred - External Exam: POSITIVE: Deferred Exam: POSITIVE: Deferred - Extremities Extremities Exam: POSITIVE: No Clubbing Present, No Edema Present, No Cyanosis Present Additional Extremities Exam Details: Left lower extremity is in Norton's traction currently. - Neurological Neurological Exam: POSITIVE: Alert, No Facial Droop, Speech Intact / Clear Additional Neurological Exam Details: Oriented to person, knows he is in the hospital. He is here for hip fracture. He could not really give me a lot of details of history of present illness due to his dementia. - Psychiatric Psychiatric Exam: POSITIVE: Flat Affect - Integumentary Integumentary Exam: POSITIVE: Normal Color, Warm, Dry, Intact - Central Line Examination Central Line Present on Admission: No Results - Labs Additional Lab Results: I am ordering a CMP, CBC, PT and INR. I am also ordering a CT scan of the pelvis and discussion with Dr. Dowd with 3-D rendering, and an AP and lateral view of the left hip. Assessment and Plan - Patient Problems (1) Closed left hip fracture Current Visit: Yes Status: Acute Code(s): S72.002A - Fracture of unspecified part of neck of left femur, initial encounter for closed fracture Qualifiers: Encounter type: initial encounter Qualified Code(s): S72.002A - Fracture of unspecified part of neck of left femur, initial encounter for closed fracture (2) Chronic anemia Current Visit: Yes Status: Acute Code(s): D64.9 - Anemia, unspecified (3) History of GI bleed Current Visit: Yes Status: Acute Code(s): Z87.19 - Personal history of other diseases of the digestive system (4) History of bladder cancer Current Visit: Yes Status: Acute Code(s): Z85.51 - Personal history of malignant neoplasm of bladder (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 Orthopedic consultation was done by Dr. Dowd and he'll take the patient to the operating room tomorrow. Imaging of the hip as discussed. Laboratories as discussed. EKG. Based on non-vascular perioperative guidelines by ACC/AHA, the patient should proceed to the operating room with postoperative risk stratification. His age and history of diastolic dysfunction but a mag greater risk, but I think that he should proceed with operating room. Postoperative risk stratification will be instituted. Increase his Sinemet to 3 times a day and double the dose. I did discuss with the patient, and his , that sometimes the most difficult part about Parkinson's disease is that as we need to increase Sinemet or add additional medications for improved movement and function, that hallucinations, constipation, dry mouth can increase and worsen. If we see more hallucinations , and apparently the patient already does have some visual hallucinations at home thinking that there are visitors present when they are not, then we may need to consider Seroquel. Patient is DO NOT RESUSCITATE. I spoke with the patient and his about that. IV fluids to start at midnight. Lovenox today, but postoperatively we may consider just going with full dose aspirin for DVT prophylaxis due to the patient's significant bleeding risk. Given his chronic anemia, I'll repeat an iron panel. If iron is still low, he is not responding to by mouth iron and will need to consider IV iron therapy which could cut down on blood transfusion needs. Place Krause catheter for now I did discuss rehabilitation options, we will consider potentially a swing bed and if making progress been great, but if not, then we will likely need long-term placement. Patient and his agree to the plan above.
--- NOTE | 2018-05-29 12:52 | HOSP.HASBL ---
HAS-BLED Score - HAS-BLED : Major Bleeding Risk Uncontrolled Hypertension (>160 mmHg Systolic): No Renal Disease (Cr > 2.26 mg/dl, Dialysis, Transplant): No Liver Disease ( Cirrhosis or bilirubin >2x normal w/ AST/ALT: No Stroke History: No Prior major bleeding or predisposition to bleeding: Yes Labile INR (Unstable/High INRs, time in therapeutic range: No Age >65: Yes Medication usage predisposing to bleeding: No Alcohol use (>7 drinks/week): No (given history of GI bleeding, moderate risk, consider just using aspirin for DVT prophylaxis post operatively. patient has continued anemia.) HAS-BLED Score: 2 HAS-BLED Risk for Major Bleeding: Moderate
[2018-05-29 12:57] LABS: Hematocrit [HCT] 31.8 % (42.0-52.0); Hemoglobin [HGB] 10.3 g/dL (14.0-18.0); MEAN CORPUSCULAR HEMOGLOBIN 29.2 PG (27-31); MEAN CORPUSCULAR HGB CONC 32.4 g/dL (33-37); MEAN CORPUSCULAR VOLUME 90.1 FL (80-90); MEAN PLATELET VOLUME 9.9 FL (7.4-12.2); RED BLOOD COUNT 3.53 10^6/uL (4.70-6.10)
[2018-05-29 13:09] LABS: PLATELET MORPHOLOGY COMMENT NORMAL MORPHOLOGY (NORM)
[2018-05-29 13:10] LABS: BAND NEUTROPHILS % 0 % (0-10); BASOPHILS % (MANUAL) 0 % (0-1); EOSINOPHILS % (MANUAL) 2 % (0-8); METAMYELOCYTES % 0 %; MONOCYTES % (MANUAL) 4 % (0-12); MYELOCYTES % 0 %; NEUTROPHILS % (MANUAL) 77 % (50-80); PROMYELOCYTES % 0 %; RBC MORPHOLOGY COMMENT SEE COMMENTS (NORM); WBC MORPHOLOGY COMMENT SEE COMMENTS (NORM)
[2018-05-29 13:11] LABS: BLOOD UREA NITROGEN 28 mg/dL (7-22); SERUM ALBUMIN 3.1 g/dL (3.5-4.8)
--- NOTE | 2018-05-29 15:24 | DI ---
CT PELVIS SCAN WITHOUT IV CONTRAST, 05/29/2018 12:33 PM : Clinical History: Left hip fracture. Previous Exam: 03/16/2018. Scans are performed from just superior to the umbilicus to the symphysis pubis without IV contrast. Sagittal and coronal images are generated. No oral or rectal contrast was ordered. Scans through the lower abdomen and pelvis show no masses or abnormal fluid collections. There is no adenopathy. A Krause catheter is present in the bladder. There is a comminuted intertrochanteric fract ure of the left hip.. No fracture of the left acetabulum is identified. There are old fractures of th e right superior ramus and acetabulum in the right iliac wing. Both inferior pubic rami are intact. N o sacral fracture is seen and there is no diastases of either SI joint. There is a fusiform aneurysm of the right common iliac artery and this measures approximately 40 mm in diameter. There is diffuse osteoporosis. READIN. There is an acute comminuted left intertrochanteric fracture. There is no associated acetabular f racture. 2. Old fracture of the right acetabulum, the right superior pubic ramus, and the right iliac wing. 3. No sacral fracture is identified. There is no diastases of either SI joint. 4. Severe osteoporosis. 5. 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 3D RENDERING OF CT SCANS OF THE LEFT HIP JOINT, 05/29/2018 12:33 PM: Clinical History: See above. Prior or Related Exam: None. The original raw data from the CT scans of this extremity are ported to the off-line [employer] workstati on for 3D rendering of the bony structures. The 3-D images confirm the comminuted intertrochanteric fracture of the left hip. There is a small fr acture fragment arising from the anterior aspect of the lesser trochanter in the inferior margin of t his fracture fragment is rotated anteriorly by approximately 30-35 degrees. Reading: Comminuted intertrochanteric fracture of the left hip as above, with a small isolated fracture fragme nt arising from the lesser trochanter.
--- NOTE | 2018-05-29 15:29 | DI ---
AP PELVIS and BILATERAL HIPS, 05/29/2018 12:32 PM : Clinical History: Left hip fracture. Previous Exam: None at this facility. Comparison is made with AP views of the left hip obtained earli er today at the medical facility in [place], [place]. There is no soft tissue abnormality. There is diffuse osteoporosis with healed fractures of the right acetabulum and right superior pubic ramus. No definite fracture of the sacrum or left side of the pe lvis is seen. 2 views of the left hip show a comminuted intertrochanteric fracture with fracture line s extending into the subtrochanteric region of the femur. There is an isolated fracture arising from the lesser trochanter. 2 views of the right hip show no acute fracture but there is a deformity possi adenike related to untreated slipped femoral capital epiphysis. 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 The right crosstable lateral images is difficult to obtain because of the patient 's fracture in the left hip. Readin. There is a comminuted intertrochanteric fracture of the left hip with an isolated fracture involv ing the lesser trochanter. Fracture lucencies extending into the proximal femur. 2. 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 No acute right hip fracture is seen. There are old fractures of the right superior pubic ramus and aceta bulum. 3. Severe osteoporosis.
[2018-05-29] MEDS: Carbidopa/Levodopa 25/100mg Tab PO SCH ×2 (15:53→21:05)
--- NOTE | 2018-05-29 16:03 | EKG ---
[address] [place] [address] Measurements Intervals [place] Rate: 68 P: 38 [place]: 151 QRS: -52 QRSD: 93 T: -8 QT: 399 QTc: 416 Interpretive Statements SINUS RHYTHM LEFT ANTERIOR FASCICULAR BLOCK [QRS AXIS <= -45, QR IN I, RS IN II] Compared to ECG 03/15/2016 19:36:18 ST (T wave) deviation no longer present Electronically Signed On 05-30-18 08:30:42 MDT by Daniel Bill MD [id number]
--- NOTE | 2018-05-29 20:16 | CONSULT ---
Consult Note - Consult Reason for Consult: PreOp Consulation : Ortho Primary Care Provider: ROMEO CHISHOLM - History of Present Illness History of Present Illness: Duran was admitted early this morning for a left intertrochanteric hip fracture. He resides in [facility]. He is transferred from the [place] emergency room. I spoke with Dr. Solorzano prior to transfer who agreed to accept the patient. Patient fell at his home in the bathroom sustaining the hip fracture. He lives with his and [facility] I spoke with him this morning. He was awake and alert. He understands that he has a left hip fracture that is in need of fixation or to help him mobilize and get out of bed. Exam of the left lower extremity reveals the left lower extremity to be in [place] traction. Skin is intact without any skin abrasions. X-rays and CAT scan were obtained of the left hip today. These show basically an intertrochanteric hip fracture with low base of the neck involvement. The overall alignment is fairly acceptable. There is a fracture line extending posteriorly down around towards the lateral cortex. Alignment is acceptable. Impression: Left intertrochanteric hip fracture in an 87-year-old Parkinson's. Plan: Is to proceed with fixation of left intertrochanteric hip fracture using an intramedullary hip screw tomorrow around 1:00. Consent will be obtained. Risks include infection, pain, malunion, nonunion, hardware failure, blood clot , and anesthetic complications. Past Medical History Medical History: 1. Bladder cancer status post tumor removal with BCG therapy. 2. History of Parkinson disease. 3. Admission in 2016 for congestive heart failure, looks like secondary to diastolic dysfunction. 4. Hypertension. 5. History of esophagitis and esophageal ulcer status post EGD, on H2 jacob Surgical History: 1. Remote appendectomy Pertinent Family History: Both parents of cancer Past Social History: Quit smoking in the early . Been 57 years. No children. Lives with his in [place], [place]. He does not want any CPR should his heart stop. Tobacco Use: Never Smoker In the Past 12 Months, Have Used or Abuse Any of the Following Substance: None Alcohol Use: None Medication / Allergies Home Medications: Home Medications 3 Medication Instructions Recorded Confirmed Type Carvedilol [Coreg] 3.125 mg PO BID #60 tab 03/22/16 03/14/18 Rx Furosemide [Lasix] 40 mg PO EVERY AM #30 tab 03/22/16 03/14/18 Rx Lisinopril [Prinivil Tab] 5 mg PO DAILY #30 tab 03/22/16 03/14/18 Rx Potassium Chloride [Klor-Con] 20 meq PO DAILY #30 tab 03/22/16 03/14/18 Rx Spironolactone [Aldactone] 25 mg PO BID #30 tab 03/22/16 03/14/18 Rx albuterol sulfate HFA 90 2 inh INH QHS PRN g 11/07/17 03/14/18 History mcg/actuation aerosol inhaler carbidopa 25 mg-levodopa 100 mg 1 tab PO BID tab 11/07/17 03/14/18 History disintegrating tablet Aspirin EC 81 mg PO DAILY #30 tablet. 03/17/18 Rx Famotidine [Pepcid] 20 mg PO BID #60 tab 03/17/18 Rx Sucralfate [Carafate] 1 gm PO AC HS #120 tab 03/17/18 Rx Allergies/Adverse Reactions: Allergies 3 Allergy/AdvReac Type Severity Reaction Status Date / Time pantoprazole [From Protonix] Allergy HIVES Verified 03/17/18 06:40 Exam - Vitals Vital Signs: Vital Signs Temperature 97.1 F Temperature Source Temporal Artery Scan Pulse Rate [Radial] 71 Pulse Rate 77 Respiratory Rate 17 Blood Pressure [Right Arm] 130/86 Blood Pressure 133/84 Pulse Ox 90 Oxygen Delivery Method Room Air Height 6 ft 3 in Weight 195 lb Results - Labs CBC and BMP: 05/29/18 12:53 05/29/18 12:53
[2018-05-29] MEDS ORDERED: CARVEDILOL 3.125 MG TABLET PO SCH (21:00)
[2018-05-29] MEDS: FAMOTIDINE 20 MG TABLET PO SCH (21:05)
[2018-05-29] MEDS ORDERED: Iron Sucrose Inj 500 MG in Sodium Chloride 0.9% 250 ML IV ONE (22:17)
[2018-05-30] MEDS: Lactated Ringers 1,000 ML PRIMARY IV SCH ×3 (02:37→16:04)
[2018-05-30] MEDS: HYDROcodone-APAP 5 MG -325 MG TABLET PO PRN ×2 (05:25→18:14)
--- NOTE | 2018-05-30 08:20 | PDOC(PROG) ---
Date of Service: 05/30/18 Time of Service: 08:20 Interval History: Subjective Patient said that he went to use the bathroom land lost balance and fell and broke his hip. his pain seems to be controlled currently. He is denying other symptoms there's no chest pain no shortness of breath. he has a right iliac aneurysm and that was discovered back in February of this year and he's been followed up by Dr. Khan supposed to have another follow-up in July. Objective : Data - Labs CBC and BMP: 05/29/18 12:53 05/29/18 12:53 Objective : Exam - General General Appearance: No Acute Distress, Cooperative - Head Head Exam: Normal Inspection - Eye Eye Exam: Normal Appearance - ENT ENT Exam: Normal Exam - Neck Neck Exam: Normal Inspection - Respiratory Respiratory Exam: Clear to Auscultation - Bilaterally - Cardiovascular Cardiovascular Exam: RRR - GI/Abdominal GI/Abdominal Exam: Normal Bowel Sounds, Non Tender, Non Distended, Soft, No Organomegaly - Rectal Rectal Exam: Deferred - External Exam: Deferred - Extremities Additional Extremities Exam Details: Left leg in [place]'s traction. - Back Back Exam: Normal Inspection - Neurological Neurological Exam: Alert, CN II-XII Intact Additional Neurological Exam Details: Soft voice. Moving all extremities except the left leg because of pain. - Integumentary Integumentary Exam: Normal Color Assessment and Plan - Patient Problems (1) Essential hypertension Current Visit: Yes Status: Chronic Comment: Apparently he is only on Aldactone at home. He is not taking the Coreg and lisinopril anymore. Code(s): I10 - Essential (primary) hypertension (2) Parkinson disease Current Visit: Yes Status: Chronic Comment: I think increasing the dosage of Sinemet to 2 tablet 3 times a day is high with high risk of side effects. I think will do it more gradual like 3 times a day for now and then will see his response. Code(s): G20 - Parkinson's disease (3) Closed left hip fracture Current Visit: Yes Status: Acute Comment: He will have surgery today. Code(s): S72.002A - Fracture of unspecified part of neck of left femur, initial encounter for closed fracture Qualifiers: Encounter type: initial encounter Qualified Code(s): S72.002A - Fracture of unspecified part of neck of left femur, initial encounter for closed fracture (4) Chronic anemia Current Visit: Yes Status: Acute Comment: We'll monitor his hemoglobin. Code(s): D64.9 - Anemia, unspecified (5) Diastolic dysfunction with chronic heart failure Current Visit: Yes Status: Acute Comment: I Think will resume Aldactone postsurgery. Code(s): I50.32 - Chronic diastolic (congestive) heart failure
[2018-05-30] MEDS: FAMOTIDINE 20 MG TABLET PO SCH ×3 (10:10→20:39)
[2018-05-30] MEDS: Carbidopa/Levodopa 25/100mg Tab PO SCH ×3 (10:10→20:39)
[2018-05-30] MEDS ORDERED: Sodium Chloride 0.9% 500 ML PRIMARY IV ONE (10:18)
[2018-05-30 11:57] LABS: BILIRUBIN,URINE NEGATIVE (NEG); CLARITY,URINE Slightly Cloudy (CLEAR); COLOR,URINE YELLOW; GLUCOSE, URINE (UA) NEGATIVE (NEG); OCCULT BLOOD,URINE LARGE (NEG); PROTEIN,URINE 100 mg/dl (NEG); UROBILINOGEN,URINE 0.2 mg/dL (0.2)
[2018-05-30 12:07] LABS: RBC,URINE 15-20 /hpf; URINE SAMPLE TYPE CLEAN CATCH URINE
[2018-05-30 12:08] LABS: BACTERIA,URINE MANY
[2018-05-30] MEDS ORDERED: PROPOFOL 10 MG/1 ML (200 MG/20 ML) VIAL IV ONE (12:12)
[2018-05-30] MEDS ORDERED: fentaNYL Inj 250 MCG/5 ML VIAL ONE (12:13)
[2018-05-30] MEDS ORDERED: KETAMINE 100 MG/1 ML - 5 ML ONE (12:13)
[2018-05-30] MEDS ORDERED: MIDAZOLAM 5 MG/1 ML ONE (12:13)
[2018-05-30] MEDS ORDERED: LIDOCAINE MPF 2% - 5 ML (20 MG/1 ML) ONE (12:14)
[2018-05-30] MEDS ORDERED: ceFAZolin Inj 2gm (Premix) 2 GM/50 ML BAG IV ONE ×2 (12:28→14:00)
[2018-05-30] MEDS ORDERED: Sodium Chloride 0.9% vial 10 ML ONE ×2 (12:59→13:49)
[2018-05-30] MEDS ORDERED: BACITRACIN 50,000 UNIT VIAL IRRIG ONE (13:00)
[2018-05-30] MEDS ORDERED: Lactated Ringers 1,000 ML PRIMARY IV ONE ×2 (13:16→14:17)
[2018-05-30] MEDS ORDERED: PHENYLEPHRINE 10,000 MCG/1 ML VIAL ONE ×2 (13:49→13:57)
[2018-05-30] MEDS ORDERED: Sodium Chloride 0.9% 100 ML IV ONE (13:55)
--- NOTE | 2018-05-30 13:57 | CD ---
[facility] [place] Interpretive Statements [id number]
[2018-05-30] MEDS ORDERED: HYDROmorphone 2 MG/1 ML ONE (14:54)
[2018-05-30] MEDS ORDERED: Sodium Chloride 0.9% 250 ML ONE (16:04)
--- NOTE | 2018-05-30 16:31 | ORTHO.OP ---
Surgery Date: 05/30/18 Preoperative Diagnosis: Left intertrochanteric hip fracture Postoperative Diagnosis: Same Procedure: Open treatment left intertrochanteric hip fracture with intramedullary hip screw (affixus nail) Surgeon: Vicki Dowd MD Customer Acquisition Specialist: HARRISON Briseno Anesthesia Provider: Yamil Cline CRNA Anesthesia Type: General Estimated Blood Loss (mL): 75 Fluids: 1300 cc LR. one unit PRBC Complications: None Operative Summary: Extubated and taken to recovery in stable condition
[2018-05-30] MEDS ORDERED: HYDROmorphone 2 MG/1 ML IVP PRN (16:54)
[2018-05-30] MEDS ORDERED: LIDOCAINE W/ SODIUM BICARB 0.5 ML SYR SUBD PRN (16:54)
--- NOTE | 2018-05-30 16:55 | CRNA.PROGR ---
Anesthesia Recovery Phase I - Post Anesthesia Evaluation Patient's Condition on Arrival in Phase I: Stable Pain Level: 0
--- NOTE | 2018-05-30 16:57 | CRNA.PROGR ---
Anesthesia Time - Procedure/Recovery Time Start Date: 05/30/18 End Date: 05/30/18 Anesthesia : Time In: 13:25 Anesthesia : Time Out: 16:43 Anesthesia : Total Time: 198 - Total Anesthesia Time Total Anesthesia Time (minutes): 198 - Other Weight: 88.451 kg Height: 6 ft 3 in Body Mass Index (BMI): 24.3 Physical Status: P3 Anesthesia Type: General Anesthesia : ET
[2018-05-30] MEDS ORDERED: ALBUTEROL SULFATE 8.5 GM HFA INHALER INH PRN (17:36)
[2018-05-30] MEDS ORDERED: ONDANSETRON 4 MG/2 ML VIAL IVP PRN ×2 (17:36)
[2018-05-30] MEDS ORDERED: D5-1/2NS + 20mEq KCL 1,000 ML PRIMARY IV SCH (17:36)
[2018-05-30] MEDS: HYDROmorphone 2 MG/1 ML IVP PRN ×3 (18:30→23:50)
--- NOTE | 2018-05-30 19:30 | DI ---
EXAM: XR Left Hip With Pelvis When Performed, 2 or 3 Views CLINICAL HISTORY: ITS.REASON Left hip fracture Physician Notes: Tech Comments: post op hip IM nailing. TECHNIQUE: Two or three views of the left hip, with pelvis when performed. COMPARISON: No relevant prior studies available. FINDINGS: Bones/joints: Fixation hardware related to the left hip. Underlying acute fracture of the left hip. Degenerative of the hips. Osteopenia. Fractures of the pubic rami, of uncertain chronicity. Soft tissues: Surgical changes with soft tissue swelling, emphysema and skin mis. Gastrointestinal tract: Gaseous distension of bowel. IMPRESSION: Fixation related to the left hip.
[2018-05-30] MEDS: Sodium Chloride 0.9% 1,000 ML PRIMARY IV SCH (20:25)
[2018-05-30] MEDS: DOCUSATE 100 MG CAPSULE PO SCH (20:39)
[2018-05-30] MEDS ORDERED: Sucralfate Tab 1 GM TAB PO SCH (21:00)
[2018-05-30] MEDS ORDERED: Spironolactone Tab 25 MG TAB PO SCH (21:00)
[2018-05-30] MEDS: ceFAZolin Inj 2gm (Premix) 2 GM/50 ML BAG IV SCH (21:49)
[2018-05-31] MEDS: HYDROmorphone 2 MG/1 ML IVP PRN (02:22)
[2018-05-31] MEDS: ceFAZolin Inj 2gm (Premix) 2 GM/50 ML BAG IV SCH (05:12)
[2018-05-31 05:20] LABS: BASOPHILS # (AUTO) 0 10*3/UL; BASOPHILS % (AUTO) 0 % (0-1); EOSINOPHILS # (AUTO) 0.14 10*3/UL; EOSINOPHILS % (AUTO) 1.8 % (0-8); Hematocrit [HCT] 31.5 % (42.0-52.0); Hemoglobin [HGB] 10.3 g/dL (14.0-18.0); LYMPHOCYTES # (AUTO) 0.91 10*3/uL; MEAN CORPUSCULAR HEMOGLOBIN 29.1 PG (27-31); MEAN CORPUSCULAR HGB CONC 32.7 g/dL (33-37); MEAN PLATELET VOLUME 10.9 FL (7.4-12.2); MONOCYTES # (AUTO) 0.79 10*3/UL (0.3-0.8); MONOCYTES % (AUTO) 10.4 % (5-15); NEUTROPHILS # (AUTO) 5.72 10*3/UL; NEUTROPHILS % (AUTO) 75.5 % (50-80); RED BLOOD COUNT 3.54 10^6/uL (4.70-6.10)
[2018-05-31 05:26] LABS: PLATELET MORPHOLOGY COMMENT NORMAL MORPHOLOGY (NORM); RBC MORPHOLOGY COMMENT NORMAL MORPHOLOGY (NORM); WBC MORPHOLOGY COMMENT NORMAL MORPHOLOGY (NORM)
[2018-05-31 05:43] LABS: BLOOD UREA NITROGEN 26 mg/dL (7-22)
[2018-05-31] MEDS ORDERED: FUROSEMIDE 40 MG TABLET PO SCH (07:00)
[2018-05-31] MEDS ORDERED: HYDROmorphone 2 MG/1 ML IVP PRN (07:18)
[2018-05-31] MEDS ORDERED: Acetaminophen 1000mg Inj 1,000 MG/100 ML VIAL IV PRN (07:18)
--- NOTE | 2018-05-31 07:22 | PDOC(PROG) ---
Date of Service: 05/31/18 Time of Service: 07:30 Interval History: Subjective Patient seemed to get agitated earlier and they moved him more closer to the nurses station. He seems unable to swallow his pills. No meaningful information can be obtained from the patient he just laying in bed with his eyes open very minimal movement I can see. When I asked him his name he seems trying to speak but I can't hear what he was trying to say. Seemed to follow some of the commands but very minimal movement. Objective : Data - Labs CBC and BMP: 05/31/18 04:25 05/31/18 04:25 Objective : Exam - General General Appearance: No Acute Distress Additional General Exam Details: Patient laying in bed the with his eyes open seem to be with minimal movement. - Head Head Exam: Normal Inspection - Eye Eye Exam: Normal Appearance - ENT ENT Exam: Normal Exam - Neck Neck Exam: Normal Inspection - Respiratory Respiratory Exam: Clear to Auscultation - Bilaterally - Cardiovascular Cardiovascular Exam: RRR - GI/Abdominal GI/Abdominal Exam: Normal Bowel Sounds, Non Tender, Non Distended, Soft, No Organomegaly - Rectal Rectal Exam: Deferred - External Exam: Deferred - Extremities Extremities Exam: Normal Inspection - Neurological Additional Neurological Exam Details: Patient is awake however he just minimally following commands. Spontaneous movement seems to be minimal. He is awake though. When asked his name he seems to try to say something but I cannot understand him. He resists movement but I think his tone is also increased. There is withdrawal to the Babinski. - Psychiatric Psychiatric Exam: Flat Affect - Integumentary Integumentary Exam: Normal Color Assessment and Plan - Patient Problems (1) Essential hypertension Current Visit: Yes Status: Chronic Comment: I think we'll hold off on his spironolactone will watch his blood pressure. Code(s): I10 - Essential (primary) hypertension (2) Parkinson disease Current Visit: Yes Status: Chronic Comment: We'll try to see whether him not getting his medication responsible for him being bradykinetic, the nurses reported some problem with the swallowing. They will crush the medication and give it to him with pudding. Code(s): G20 - Parkinson's disease (3) Closed left hip fracture Current Visit: Yes Status: Acute Comment: Status post surgery. I think we'll cut back on the IV pain medications. Will write for IV tylenol. We'll discuss later on with Dr. Dowd about anticoagulant for DVT prophylaxis Code(s): S72.002A - Fracture of unspecified part of neck of left femur, initial encounter for closed fracture Qualifiers: Encounter type: initial encounter Qualified Code(s): S72.002A - Fracture of unspecified part of neck of left femur, initial encounter for closed fracture (4) Chronic anemia Current Visit: Yes Status: Acute Comment: Seems to be stable. Code(s): D64.9 - Anemia, unspecified (5) Diastolic dysfunction with chronic heart failure Current Visit: Yes Status: Acute Comment: Hold off on Aldactone for now. Code(s): I50.32 - Chronic diastolic (congestive) heart failure
[2018-05-31] MEDS: Sodium Chloride 0.9% 1,000 ML PRIMARY IV SCH (08:28)
[2018-05-31] MEDS ORDERED: POTASSIUM CHLORIDE 20 MEQ TAB PO SCH (09:00)
[2018-05-31] MEDS ORDERED: LISINOPRIL 5 MG TABLET PO SCH (09:00)
[2018-05-31] MEDS ORDERED: Spironolactone Tab 25 MG TAB PO SCH (09:00)
[2018-05-31] MEDS: HYDROcodone-APAP 5 MG -325 MG TABLET PO PRN ×3 (09:46→21:13)
[2018-05-31] MEDS: FAMOTIDINE 20 MG TABLET PO SCH ×2 (09:46→21:13)
[2018-05-31] MEDS: cefTRIAXone Inj 1 GM in Sodium Chloride 0.9% 100 ML IV SCH (09:47)
[2018-05-31] MEDS: Carbidopa/Levodopa 25/100mg Tab PO SCH ×3 (09:47→21:13)
[2018-05-31] MEDS: DOCUSATE 100 MG CAPSULE PO SCH ×2 (10:06→22:35)
--- NOTE | 2018-05-31 10:07 | ORTHO.PROG ---
Last Taken Vital Signs: Vital Signs - Last Taken Temperature 99.9 F H 05/31/18 06:53 Pulse Rate 86 05/31/18 06:55 Respiratory Rate 12 05/31/18 06:53 Blood Pressure 130/80 05/31/18 06:53 Pulse Ox 95 05/31/18 06:53 Subjective: Patient lying flat in bed. Has been a little bit confused and combative as per nursing. Pain seems to be well managed. Objective: Vital signs stable MAXIMUM TEMPERATURE 99 hemoglobin and hematocrit 10 and 31. Left hip incision clean and dry. Assessment: Impression: Confusion postop day 1. Pain seems to be well managed. Plan: Plan is that they're going to back off of his pain medication. Try to get him up in a chair today and therapy. He is going to be old, and partial weightbearing. Therefore will probably just work on transfers from bed to chair and chair to bed for the first little while.
--- NOTE | 2018-05-31 12:18 | CRNA.PROGR ---
Anesthesia Note - Progress Notes Anesthesia Progress Note: Post OP Anesthesia Note Pt is sitting up in bed, now taking clear fluids by oral, has not eaten yet. He has returned to the baseline mentation. He denies any residual issue from the general anesthetic. his is at he side and is verifying what he is saying. Pain is under control. Current VS are stable. Vital Signs - Last Taken Temperature 97.8 F 05/31/18 12:06 Pulse Rate 91 05/31/18 12:06 Respiratory Rate 12 05/31/18 12:06 Blood Pressure 112/70 05/31/18 12:06 Pulse Ox 96 05/31/18 12:06
[2018-06-01] MEDS: HYDROcodone-APAP 5 MG -325 MG TABLET PO PRN ×4 (01:11→20:54)
[2018-06-01 06:19] LABS: BASOPHILS # (AUTO) 0 10*3/UL; BASOPHILS % (AUTO) 0 % (0-1); EOSINOPHILS # (AUTO) 0.14 10*3/UL; EOSINOPHILS % (AUTO) 2.1 % (0-8); Hematocrit [HCT] 29.6 % (42.0-52.0); Hemoglobin [HGB] 9.4 g/dL (14.0-18.0); LYMPHOCYTES # (AUTO) 0.82 10*3/uL; MEAN CORPUSCULAR HEMOGLOBIN 28.4 PG (27-31); MEAN CORPUSCULAR HGB CONC 31.8 g/dL (33-37); MEAN CORPUSCULAR VOLUME 89.4 FL (80-90); MEAN PLATELET VOLUME 10.2 FL (7.4-12.2); MONOCYTES # (AUTO) 0.64 10*3/UL (0.3-0.8); MONOCYTES % (AUTO) 9.8 % (5-15); NEUTROPHILS # (AUTO) 4.95 10*3/UL; NEUTROPHILS % (AUTO) 75.6 % (50-80); RED BLOOD COUNT 3.31 10^6/uL (4.70-6.10)
[2018-06-01 06:22] LABS: PLATELET MORPHOLOGY COMMENT NORMAL MORPHOLOGY (NORM); RBC MORPHOLOGY COMMENT NORMAL MORPHOLOGY (NORM); WBC MORPHOLOGY COMMENT NORMAL MORPHOLOGY (NORM)
[2018-06-01 06:38] LABS: BLOOD UREA NITROGEN 28 mg/dL (7-22); BUN/CREATININE RATIO 25.45 (6-20)
[2018-06-01] MEDS: Carbidopa/Levodopa 25/100mg Tab PO SCH ×4 (07:33→20:39)
--- NOTE | 2018-06-01 07:39 | PDOC(PROG) ---
Date of Service: 06/01/18 Time of Service: 07:40 Interval History: Subjective Yesterday after I saw the patient he got his medication and was able to swallow his medication after they crushed them and he was more cooperative and calm and more at his baseline. However this morning he is doing the same thing, staring at times not saying much. Then he became agitated at me as I was talking to him. Objective : Data - Labs CBC and BMP: 06/01/18 06:00 06/01/18 06:00 Objective : Exam - General General Appearance: No Acute Distress Additional General Exam Details: He was sitting in the chair seemed to be staring follow some of the commands. Then he became agitated with me and cursing me. - Head Head Exam: Normal Inspection - Eye Eye Exam: Normal Appearance - ENT ENT Exam: Normal Exam - Neck Neck Exam: Normal Inspection - Respiratory Respiratory Exam: Clear to Auscultation - Bilaterally - Cardiovascular Cardiovascular Exam: RRR - GI/Abdominal GI/Abdominal Exam: Normal Bowel Sounds, Non Tender, Non Distended, Soft, No Organomegaly - Rectal Rectal Exam: Deferred - External Exam: Deferred - Extremities Additional Extremities Exam Details: No edema present. - Neurological Additional Neurological Exam Details: He is awake. Sitting in the chair follow some of the commands. Then he became agitated at me. - Integumentary Integumentary Exam: Normal Color Assessment and Plan - Patient Problems (1) Essential hypertension Current Visit: Yes Status: Chronic Comment: Continue holding the Aldactone for now. We'll cut back on the fluid and maybe DC it later on. Code(s): I10 - Essential (primary) hypertension (2) Parkinson disease Current Visit: Yes Status: Chronic Comment: Continue the Sinemet. Yesterday after he got the Sinemet he seemed to be more back to his baseline more cooperative. I think will continue with increased dosage for now. Code(s): G20 - Parkinson's disease (3) Closed left hip fracture Current Visit: Yes Status: Acute Comment: He is status post surgery, continue PT and OT evaluation. Code(s): S72.002A - Fracture of unspecified part of neck of left femur, initial encounter for closed fracture Qualifiers: Encounter type: initial encounter Qualified Code(s): S72.002A - Fracture of unspecified part of neck of left femur, initial encounter for closed fracture (4) Chronic anemia Current Visit: Yes Status: Acute Comment: Slight drop in the hemoglobin will watch it. Code(s): D64.9 - Anemia, unspecified
[2018-06-01] MEDS: cefTRIAXone Inj 1 GM in Sodium Chloride 0.9% 100 ML IV SCH (08:29)
[2018-06-01] MEDS: FAMOTIDINE 20 MG TABLET PO SCH ×3 (08:31→20:39)
[2018-06-01] MEDS: DOCUSATE 100 MG CAPSULE PO SCH ×2 (08:36→20:40)
--- NOTE | 2018-06-01 08:56 | ORTHO.PROG ---
Last Taken Vital Signs: Vital Signs - Last Taken Temperature 97.7 F 06/01/18 06:29 Pulse Rate 71 06/01/18 07:00 Respiratory Rate 17 06/01/18 07:00 Blood Pressure 111/68 06/01/18 06:29 Pulse Ox 98 06/01/18 06:29 Subjective: Patient sitting up in chair eating breakfast. Seems a little bit irritated this morning. Did better yesterday after receiving his Parkinson medications. Objective: Vital signs stable patient afebrile. Left hip incisions with dressings intact. Thigh is supple. Able to wiggle toes. Hemoglobin and hematocrit 9 and 29 Assessment: Impression: Doing fairly well postop day 2 from fixation of left hip fracture. Plan: Plan: Is to continue transfers from bed to chair chair to bed. He will likely require a snf facility if not ultimately the care center.
[2018-06-01] MEDS: ENOXAPARIN SODIUM 40 MG/0.4 ML SYRINGE SUBCUT SCH (09:50)
--- NOTE | 2018-06-01 12:56 | OT.PROG ---
Progress Note Progress Note: S: pt was difficult to hear this morning. It was reported form nurses and that he was not in good mood. O: pt was seen in his room this a.m and fitted for a ROHO cushion. He completed x3 sit to stands with Mod-Max a x2 man. He stood for up to 1-2 min each time. He was left upright in chair with call light within reach and present. A: pt tolerated therapy well today but still requires assistance with standing. he is not compliant of TTWB as not sure if he comprehends. P: continue per POC.
[2018-06-02] MEDS: HYDROcodone-APAP 5 MG -325 MG TABLET PO PRN ×3 (01:13→21:17)
[2018-06-02 05:12] LABS: BASOPHILS # (AUTO) 0.01 10*3/UL; BASOPHILS % (AUTO) 0.1 % (0-1); EOSINOPHILS # (AUTO) 0.16 10*3/UL; EOSINOPHILS % (AUTO) 2.3 % (0-8); Hematocrit [HCT] 31.1 % (42.0-52.0); LYMPHOCYTES # (AUTO) 1.07 10*3/uL; MEAN CORPUSCULAR HEMOGLOBIN 28.3 PG (27-31); MEAN CORPUSCULAR HGB CONC 32.2 g/dL (33-37); MEAN CORPUSCULAR VOLUME 88.1 FL (80-90); MEAN PLATELET VOLUME 10.2 FL (7.4-12.2); MONOCYTES # (AUTO) 0.63 10*3/UL (0.3-0.8); NEUTROPHILS # (AUTO) 5.13 10*3/UL; NEUTROPHILS % (AUTO) 73.2 % (50-80); RED BLOOD COUNT 3.53 10^6/uL (4.70-6.10)
[2018-06-02 05:23] LABS: PLATELET MORPHOLOGY COMMENT NORMAL MORPHOLOGY (NORM); RBC MORPHOLOGY COMMENT NORMAL MORPHOLOGY (NORM); WBC MORPHOLOGY COMMENT NORMAL MORPHOLOGY (NORM)
[2018-06-02 06:12] LABS: BLOOD UREA NITROGEN 27 mg/dL (7-22)
--- NOTE | 2018-06-02 08:03 | ORTHO.PROG ---
Last Taken Vital Signs: Vital Signs - Last Taken Temperature 97.3 F 06/02/18 07:13 Pulse Rate 72 06/02/18 07:13 Respiratory Rate 18 06/02/18 07:13 Blood Pressure 119/72 06/02/18 07:13 Pulse Ox 96 06/02/18 07:13 Subjective: Patient lying in bed. Told he was having much pain. Got up in chair yesterday. Objective: Vital signs stable patient afebrile. Left hip dressings are dry. Hemoglobin and hematocrit 10 and 30. Assessment: Impression: Stable. Day 3 from left hip fracture Plan: Plan is to continue transfers. Will probably need long-term care.
[2018-06-02] MEDS: cefTRIAXone Inj 1 GM in Sodium Chloride 0.9% 100 ML IV SCH (08:06)
[2018-06-02] MEDS: ENOXAPARIN SODIUM 40 MG/0.4 ML SYRINGE SUBCUT SCH (08:06)
[2018-06-02] MEDS: Carbidopa/Levodopa 25/100mg Tab PO SCH ×2 (08:06→21:17)
[2018-06-02] MEDS: DOCUSATE 100 MG CAPSULE PO SCH ×2 (08:06→21:17)
--- NOTE | 2018-06-02 09:26 | PDOC(PROG) ---
Date of Service: 06/02/18 Time of Service: 09:30 Interval History: Subjective Patient was laying in bed not saying much. However when I tried to talk to him he refused. It required convincing from his to let me examine him but otherwise he is not answering questions. The said he is not talking to her much. Objective : Data - Labs CBC and BMP: 06/02/18 05:00 06/02/18 05:00 Objective : Exam - General General Appearance: No Acute Distress Additional General Exam Details: He's laying in bed awake not saying much. - Head Head Exam: Normal Inspection - Eye Eye Exam: Normal Appearance - ENT ENT Exam: Normal Exam - Neck Neck Exam: Normal Inspection - Respiratory Respiratory Exam: Clear to Auscultation - Bilaterally - Cardiovascular Cardiovascular Exam: RRR - GI/Abdominal GI/Abdominal Exam: Normal Bowel Sounds, Non Tender, Non Distended, Soft, No Organomegaly - Rectal Rectal Exam: Deferred - External Exam: Deferred - Extremities Additional Extremities Exam Details: No edema noted - Back Back Exam: Normal Inspection - Neurological Additional Neurological Exam Details: Awake, and very cooperative. Not saying much. He refused to follow commands - Psychiatric Psychiatric Exam: Flat Affect Assessment and Plan - Patient Problems (1) Essential hypertension Current Visit: Yes Status: Chronic Comment: I think will restart the Aldactone tomorrow at one day. He had hypokalemia in the past and that seemed to work best to maintain his potassium and potassium is low today so we'll restart the Aldactone and potassium supplement. Code(s): I10 - Essential (primary) hypertension (2) Parkinson disease Current Visit: Yes Status: Chronic Comment: I'm not sure whether the increased dosage in the Sinemet caused this behavioral change in him. I think will put him back to his twice a day instead of 3 times a day dosage. We did cut back on the pain medication dosage. We'll see whether that can make a difference. Code(s): G20 - Parkinson's disease (3) Closed left hip fracture Current Visit: Yes Status: Acute Comment: Continue transfer order as per Dr. Dowd recommendations. For DVT prophylaxis we started him on Lovenox. Code(s): S72.002A - Fracture of unspecified part of neck of left femur, initial encounter for closed fracture Qualifiers: Encounter type: initial encounter Qualified Code(s): S72.002A - Fracture of unspecified part of neck of left femur, initial encounter for closed fracture (4) Abnormal finding on urinalysis Current Visit: Yes Status: Acute Comment: He got 3 days of for Rocephin and will stop it Code(s): R82.90 - Unspecified abnormal findings in urine
[2018-06-02] MEDS: Potassium Chloride Tab 10 MEQ TAB PO SCH (09:30)
[2018-06-02] MEDS: FAMOTIDINE 20 MG TABLET PO SCH ×2 (09:30→21:17)
--- NOTE | 2018-06-02 11:17 | PTI REPORT ---
Thank you for the referral of Duran Navarro. He was seen on 05/31/18 for an inpatient evaluation status post left hip fracture. SUBJECTIVE: The patient is an 87-year-old male who was referred to us secondary to a hip fracture of the left hip. He underwent an ORIF yesterday and was seen in the hospital this morning. The patient had a tough night according to the nurses. The patient does have an underlying diagnosis of Parkinson's which probably contributed to his recent fall. 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 PAST MEDICAL HISTORY: Past medical history can be found in the patient's medical record. OBJECTIVE FINDINGS: General observations: The patient is alert and oriented x1. It takes quite a bit of stimulation to keep his eyes open. He does respond to pain and any kind of movement of that hip seems to be extremely painful for him this morning. Bed mobility: The patient was able to come from a supine to seated position with maximal assist of one and moderate assist of two. He was able to maintain that position with stand by assistance. Transfers: The patient was able to transfer from sit to stand with moderate assist of two. We did do a standing pivot transfer into a michael-chair with assist of one. The patient was able to help with 75% of his weight, but had a hard time understanding any weight-bearing precautions. Ambulation: The patient was unable to ambulate due to pain. He did not understand toe touch weight-bearing whatsoever. ASSESSMENT: The patient is post op ORIF of the left hip and is having some difficulty regaining his orientation due to the anesthesia. He has an underlying diagnosis of Parkinson's and uses a walker timekeeper at home, probably contributing to his poor balance. The patient is a very HIGH risk for falling. While in the facility he requires a gait belt and supervision. Short-Term Goals: To be met by discharge from inpatient: Patient will be able to transfer from bed to stand with min assist. Patient will be able to ambulate 100 feet with walker and toe touch weight- bearing. Patient will be able to ascend and descend 5 stairs with walker and toe touch weight-bearing. Long-Term Goals: To be met following discharge from inpatient: Patient will be seen by outpatient physical therapy. TREATMENT PLAN: Patient will be seen B.I.D during the week and one time per day over the weekend as an inpatient for transfer training. Hopefully his cognition will improve daily and we can start to work on some ambulation. We will work with discharge planning to work on a long-term goal after we see how the next 48 hours goes for him. INITIAL TREATMENT: Treatment today consisted of the initial evaluation activities only. ROCCO
--- NOTE | 2018-06-02 15:34 | OTI REPORT ---
Thank you for the referral of Duran Navarro. He was seen on 06/02/18 for an occupational therapy inpatient evaluation status post left hip ORIF. SUBJECTIVE: The patient is an 87-year-old male who fell at home while walking to the bathroom. The patient's was present during the evaluation today and was the main informant as the patient is not talking very loudly and is taking increased time to process. The patient's reports that their home is a one level home once you get inside. They do have a bathtub with a tub bench. Their toilet has a high rise toilet seat on it. The patient's typically does all of the iADLs within the home. The patient typically dresses himself independently; the patient's states once in a while she would have to help him. The patient can go to the bathroom independently. The patient and his stated they did not leave the house often. PAST MEDICAL HISTORY: Past medical history can be found in the patient's medical record. OBJECTIVE FINDINGS: General observations: The patient was supine in bed upon the therapist's arrival. Range of motion: The patient demonstrated 0 to 90 degrees of shoulder flexion in bilateral upper extremities. Strength: Strength is pretty minimal at 3/5 within the available range of motion. Following directions: The patient was able to follow one step verbal commands. Bed mobility: The patient required max assist x3 to come from supine to sit. Transfers: The patient completed a commode transfer with max assist x2 and a lot of verbal cues. The patient needed encouragement and verbal cues to stand up straight and to move his legs. The patient is very stiff. He needed assistance to sit appropriately. Activities of daily living: The patient is dependent with lower extremity dressing and requires max assist for upper extremity dressing. ASSESSMENT: Problem List: Decreased ability to perform ADLs Decreased upper extremity strength Decreased functional transfers Short-Term Goals: To be met by discharge from inpatient: Patient will be able to stand x5 minutes while completing simple hygiene tasks to improve standing balance and ADLs. Patient will be able to dress upper and lower extremities with min assist with use of adaptive equipment. Patient will complete a toilet transfer with min assist. Patient will be able to complete showering task with min assist. Patient will increase upper extremity strength to 4+/5 to improve strength for functional transfers and ADLs. Long-Term Goals: To be met following discharge from inpatient: Patient will definitely need a swingbed stay, more than likely in [place] to work on the above goals and objectives. TREATMENT PLAN: Patient will be seen B.I.D during the week and one time per day over the weekend as an inpatient to address the above goals and objectives. INITIAL TREATMENT: Treatment today consisted of the initial evaluation followed by the patient coming from supine to sit with max assist x2 and a commode transfer with max assist x2. The patient was dependent with toilet hygiene. The patient transferred back to his chair with max assist x2. The patient completed hygiene activities including washing face with min assist after set up. ROCCO
--- NOTE | 2018-06-02 16:03 | OT.PROG ---
Progress Note Progress Note: S: pt did not report any pain but was hard to hear today. O: pt was seen in his room with his present. He completed UE exercises with RTB in all planes to increase strength to assist with postural transitions. OT also assisted with bed side commode transfers with MOd-max A x2 to complete it safety. A: pt does not understand TTWb and continues to need x2 to transfers. Stand- pivot transfers were difficult today. P: continue per POC.
--- NOTE | 2018-06-02 16:26 | PT.PROG ---
Progress Note Progress Note: S. Patient agreed to sit up in the chair this morning. O. Patient transferred from supine to seated at the edge of bed then performed sit to stand transfer, then pivot transferred to the commode then stood to transfer to the chair, where he was left with alarm and call light. A. Patient tolerated standing and transfers fair, he requires max assist x 3 to transfer from supine to sit then mod assist x 2 for sit to stand and pivot transfer. Patient requires frequent verbal cues to complete transfers, he is unable to maintain toe touch weight bearing status. P. Continue POC.
--- NOTE | 2018-06-02 17:18 | PT.PROG ---
Progress Note Progress Note: S. Patient agreed to do therapy this afternoon. O. Patient performed sit to stand transfer then stood x 3 minutes 3 times. Patient was left in his chair with alarm and call light. A. Patient was able to perform transfers and standing with mod assist x 2. Patient continues to be very weak and is unable to maintain weight bearing status. Discussed with patient's about swing bed in [place], Patient and agreed that would be best for them. agreed to drive the patient to [place]. Therapy will assist with transfer into car and discuss with [facility] for transfer out of car when they arrive. Patient would continue to benefit from skilled therapy to increase strength, and endurance at this time. P. Continue POC.
[2018-06-03] MEDS: HYDROcodone-APAP 5 MG -325 MG TABLET PO PRN ×2 (03:03→12:14)
[2018-06-03 07:42] VITALS: RESP 17
[2018-06-03] MEDS ORDERED: Spironolactone Tab 25 MG TAB PO SCH (09:00)
[2018-06-03] MEDS: ENOXAPARIN SODIUM 40 MG/0.4 ML SYRINGE SUBCUT SCH (09:43)
[2018-06-03] MEDS: FAMOTIDINE 20 MG TABLET PO SCH (09:44)
[2018-06-03] MEDS: DOCUSATE 100 MG CAPSULE PO SCH (09:44)
[2018-06-03] MEDS: Carbidopa/Levodopa 25/100mg Tab PO SCH (09:44)
[2018-06-03] MEDS: Potassium Chloride Tab 10 MEQ TAB PO SCH (09:44)
--- NOTE | 2018-06-03 10:01 | DCSUMMARY ---
Hospitalization Summary Admit Date: 05/29/2018 Discharge Date: 06/03/18 Hospital Course: Discharge diagnoses 1. Left intertrochanteric hip fracture status post surgery with intramedullary hip screw 2. History of bladder cancer status post tumor removal with BCG therapy 3. History of Parkinson disease 4. History of CHF secondary diastolic dysfunction 5. History of hypertension 6. History of esophagitis and esophageal ulcer status post EGD February 2018 7. Possible UTI empirically treated 8. Dementia Hospital course This is a 87 years old male with medical history significant for history of Parkinson disease, history of recent GI bleed secondary to esophageal ulcer and esophagitis had blood transfusion before who presented to the hospital after a fall in the bathroom. Medics were called and brought to the hospital was found to have left hip fracture. He was admitted to the hospital by Dr. Solorzano please see his note. Patient was put on Norton's traction initially. I saw the him the next day and spoke with Dr. Dowd who took him to surgery. He did receive 2 units of blood during surgery. Post surgery he did have an episode of agitation, becoming angry. The dosage of the Sinemet was adjusted before surgery. Because of the behavioral change I did cut back on the dosage and put him back on his usual dosage. Per recommendation of forDr. Dowd he is to transfer from bed to chair for 4 weeks. Ideally he should be partial weightbearing however because of his underlying dementia this is probably will be difficult. Since his oral intake was low we did not put him back on his Aldactone initially. 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 This Need to be looked at later on when he is at [place] and see whether he can go back to twice a day. He Had some hypokalemia and he is on potassium replacement. Dr. Dowd will see him a week and likely take the mis out. Initially he was put on Lovenox for DVT prophylaxis and per my discussion with Dr. Dowd he wants him to be on aspirin twice a day for a month now. Discharge instruction Diet regular Activity as started Medications Current Medication(s) 3 Medication Instructions Recorded Confirmed Type Potassium Chloride [Klor-Con] 20 meq PO DAILY #30 tab 03/22/16 03/14/18 Rx Spironolactone [Aldactone] 25 mg PO daily 03/22/16 03/14/18 Rx albuterol sulfate HFA 90 2 inh INH QHS PRN g 11/07/17 03/14/18 History mcg/actuation aerosol inhaler carbidopa 25 mg-levodopa 100 mg 1 tab PO BID tab 11/07/17 03/14/18 History disintegrating tablet Aspirin EC 81 mg PO bid 03/17/18 Rx Famotidine [Pepcid] 20 mg PO BID #60 tab 03/17/18 Rx Docusate Sodium [Colace] 100 mg PO BID cap 06/03/18 Rx Follow-up with the PCP at the senior living, follow-up with the Dr. Dowd Exam - Vitals Vital Signs: Vital Signs Temperature 96.9 F Temperature Source Temporal Artery Scan Pulse Rate [Pulse Oximeter] 69 Pulse Rate [Radial] 71 Pulse Rate 83 Respiratory Rate 17 Blood Pressure [Left Arm] 114/71 Blood Pressure [Right Arm] 137/84 Blood Pressure 97/84 Pulse Ox 94 Oxygen Flow Rate 2 Oxygen Delivery Method Room Air Height 6 ft 3 in Weight 195 lb - General General Appearance: No Acute Distress, Cooperative Additional General Exam Details: He is cooperative today with me. - Head Head Exam: Normal Inspection - Eye Eye Exam: POSITIVE: Normal Appearance - ENT ENT Exam: POSITIVE: Normal Exam - Neck Neck Exam: Normal Inspection - Respiratory Respiratory Exam: POSITIVE: Clear to Auscultation - Bilaterally - Cardiovascular Cardiovascular Exam: POSITIVE: RRR - GI/Abdominal GI/Abdominal Exam: POSITIVE: Normal Bowel Sounds, Non Tender, Non Distended, Soft, No Organomegaly - Rectal Rectal Exam: POSITIVE: Deferred - External Exam: POSITIVE: Deferred - Extremities Extremities Exam: POSITIVE: Normal Inspection Patient Problems - Patient Problem List (1) Essential hypertension Current Visit: Yes Status: Chronic Code(s): I10 - Essential (primary) hypertension Category: Medical (2) Parkinson disease Current Visit: Yes Status: Chronic Code(s): G20 - Parkinson's disease Category: Medical (3) Closed left hip fracture Current Visit: Yes Status: Acute Code(s): S72.002A - Fracture of unspecified part of neck of left femur, initial encounter for closed fracture Qualifiers: Encounter type: initial encounter Qualified Code(s): S72.002A - Fracture of unspecified part of neck of left femur, initial encounter for closed fracture Category: Medical (4) Abnormal finding on urinalysis Current Visit: Yes Status: Acute Code(s): R82.90 - Unspecified abnormal findings in urine Category: Medical
--- NOTE | 2018-06-03 10:02 | ORTHO.PROG ---
Last Taken Vital Signs: Vital Signs - Last Taken Temperature 96.9 F 06/03/18 07:41 Pulse Rate 69 06/03/18 07:41 Respiratory Rate 17 06/03/18 07:41 Blood Pressure 114/71 06/03/18 07:41 Pulse Ox 94 06/03/18 07:41 Subjective: Patient to in the shower. Denies having any pain. Plans on going to the [facility] today. Objective: Vital signs stable patient afebrile. Left hip incisions clean with mild serous drainage. No wound problems. Assessment: Impression: Doing well postop day 3 from intramedullary hip screw left hip. Plan: Plan: He will be transferred to the [facility] today. He will transfer from bed to chair chair to bed and bed to wheelchair. He can stand transfer. Would like him to ideally be partial weightbearing ideally but I'm not sure he can comprehend that. Recommend keeping a dry dressing on his left hip incisions. Bilateral NOELLE hose. These can be knee-high. They can use an John wrap around his waist to provide some compression she developed some serous drainage. I will personally take his stitches week from when I am in [place] seeing patients.
[2018-06-03 11:41] VITALS: BP 125/74; TEMP 97.8; O2SAT 92
--- NOTE | 2018-06-03 12:05 | OT.PROG ---
Progress Note Progress Note: S: pt stated things are getting better since he is leaving soon and returning to [place]. O: pt was seen in his room today with and family present. He completed donning of LE sock/compression stockings with Max A. He then needed Max A with donning of LE garments and mod A with donning of UE shirt. He was left in chair and ready for d/c after dressing activity. A: pt still needs max A with dressing and standing. Stand pivot transfers need to be done x2 man for safety. He will continue to benefit from therapy in [place] setting. P: Continue per POC.
--- NOTE | 2018-06-03 12:22 | PT AM DAY ---
Diagnosis : Left Hip ORIF AM - Physical Therapy S: At the time of treatment, the patient's was present, stating that they are waiting to hear from Dr. Dowd whether or not he can be transferred to swingbed status in [place] due to them living in [place]. The patient reports being stuck in his bed and complaining that he had to go to the bathroom. O: Today's therapy consisted of the patient requiring max assist x1 for left lower extremity as well as verbal cues for proper hand placement for transfers from supine in bed to edge of bed where he was able to sit unsupported with verbal cues for proper hand placement x5 minutes. He was able to perform 3 sit to stand transfers as well as a stand pivot transfer to the commode. The patient is to be toe touch weight-bearing; however, he is unable to maintain this. Following toileting activities the patient required a stand pivot transfer to a shower chair where nursing was able to provide him with a shower. Physical therapy assisted with stand pivot transfer into his recliner. A: The therapist spoke with Dr. Dowd in regards to the patient being unable to maintain toe touch weight-bearing on the left lower extremity for which he expressed understanding. We will focus on sit to stands with emphasis on weight shifting as well as stand pivot transfers. P: The patient will be transferred to the [facility] this afternoon with assistance from physical therapy for transfers into the car. ROCCO
== END 2018-06-03 12:51 | DRG 481 ==
LOC: MED/SURG 04:49 → OR 04:49 → OPS 05-30 12:22 → MED/SURG 05-30 17:34 → UNDODISIN 06-03 12:51 → EDSTATUS 06-13 16:32 → MED/SURG 06-13 16:44
PROVIDERS: ADMIT Family Medicine; ATTEND Orthopaedic Surgery